=== PATIENT | male | born 1955 | race Caucasian/White ===

== ENCOUNTER 2021-01-26 18:27 | Inpatient (IN) | payer MEDICARE, OTHER, SELFPAY ==
[2021-01-26 18:37] VITALS: BP 115/72; PULSE 76; RESP 16; TEMP 36.2; O2SAT 96; BMI 28.7
[2021-01-26] MEDS: Acetaminophen 325 MG Tablet 650 MG PO (20:23)
[2021-01-26] MEDS: Arthritis Pain Compound 60 CLICK TUBE TOPICAL (21:40)
[2021-01-26] MEDS: Azelastine HCl NASAL.SRY 2 SPRAY NASAL (21:42)
[2021-01-26] MEDS: Atorvastatin Calcium 80 MG Tablet PO (21:44)
[2021-01-26] MEDS: Latanoprost 0.005% 1 Bottle 1 DRP EACH EYE (21:44)
[2021-01-26] MEDS: Pramipexole Di-HCl 0.125 MG Tablet PO (21:44)
[2021-01-26] MEDS: Mupirocin Ointment 22gm Tube 1 APPLIC TOPICAL (21:50)
[2021-01-26 21:54] VITALS: BP 118/75; PULSE 65; RESP 18; TEMP 36.6; O2SAT 96
--- NOTE | 2021-01-27 04:16 | NURSING ---
Reviewed and agree with DRIVERS' CASH CLERK assessment.
[2021-01-27] MEDS: Acetaminophen 325 MG Tablet 650 MG PO ×2 (06:19→14:11)
[2021-01-27 06:36] VITALS: O2SAT 94
[2021-01-27 07:00] LABS: Absolute Neutrophil Count 3.8 X10^3/uL (2.0-7.7); Basophil# 0.04 X10^3/uL; Basophil% 0.6 % (0-1); Eosinophil# 0.22 X10^3/uL; Eosinophils% 3.3 % (0-5); Hematocrit 47.1 % (40-54); Hemoglobin 16.1 g/dL (13.0-16.5); Lymphocyte % 31.3 % (19-41); Mean Corp Hgb Conc 34.2 g/dL (32-36); Mean Corpuscular Volume 93.6 fL (80-94); Mean Platelet Vol. 9.6 fl (6.2-12.0); Monocyte# 0.49 X10^3/uL; Monocyte% 7.3 % (0-10); NRBC Flagged by Analyzer 0 % (0-5); Neutrophil # 3.83 X10^3/uL (2.7-7.7); Neutrophil % 57.2 % (47-70); Platelet Count 214 K/mm3 (150-450); RBC Distribution Width CV 12.8 % (11.6-14.6); RBC Distribution Width SD 44.1 fl (35.1-43.9); Red Blood Count 5.03 M/mm3 (4.6-6.2); White Blood Count 6.7 K/mm3 (4.4-11.0)
[2021-01-27 07:22] LABS: ALB/GLOB Ratio 1.2 RATIO (0.9-2.4); AST(SGOT) 15 U/L (15-37); Alanine Aminotransfer ALT/SGPT 36 U/L (16-61); Alkaline Phosphatase 48 U/L (45-117); Anion Gap 5 (5-15); BUN 10 mg/dL (7-18); BUN/Creat Ratio 12.8 RATIO (10-20); Calcium,Total 9.6 mg/dL (8.5-10.1); Chloride 108 mmol/L (98-107); Creatinine, Serum 0.78 mg/dL (0.70-1.30); EST Glomerular Filtration Rate 106 mL/min (>60); Est Glom Filt Rate - Afr Amer 128 mL/min (>60); Estimated Creatinine Clearance 89.45 ml/min; Globulin 3.2 g/dL (2.2-4.2); Glucose 112 mg/dL (74-106); Magnesium 1.8 mg/dL (1.6-2.6); Phosphorus 3.1 mg/dL (2.5-4.9); Potassium 3.9 mmol/L (3.5-5.1); Protein, Total 7.2 g/dL (6.4-8.2); Sodium Level 138 mmol/L (136-145)
[2021-01-27] MEDS: Aspirin 81 MG TAB.CHEW PO (07:42)
[2021-01-27] MEDS: metFORMIN (XR) 500 MG Tablet PO (07:42)
[2021-01-27] MEDS: Arthritis Pain Compound 60 CLICK TUBE TOPICAL ×2 (07:42→20:58)
[2021-01-27] MEDS: Multivitamins,Therapeutic Tablet 1 TABLET PO (07:42)
[2021-01-27] MEDS: Azelastine HCl NASAL.SRY 2 SPRAY NASAL (07:43)
[2021-01-27] MEDS: Tamsulosin HCl 0.4 MG Capsule PO (07:43)
[2021-01-27] MEDS: Fluticasone 0.05% 1 SPRAY NASAL.SRY 2 SPRAY NASAL (07:43)
[2021-01-27] MEDS: Mupirocin Ointment 22gm Tube 1 APPLIC TOPICAL ×2 (07:43→20:59)
[2021-01-27] MEDS: Clopidogrel Bisulfate 75 MG Tablet PO (07:44)
[2021-01-27] MEDS: Cyanocobalamin 500 MCG Tablet PO (07:44)
[2021-01-27] MEDS: Cholecalciferol (VIT D3) 25 MCG TABLET (1,000 UNITS) 125 MCG PO (07:44)
[2021-01-27] MEDS: Sertraline 50 MG Tablet PO (07:44)
[2021-01-27] MEDS: Pantoprazole Sodium 40 MG Tablet PO (07:44)
[2021-01-27 08:36] VITALS: BP 140/89; PULSE 84; RESP 16; TEMP 36.5; O2SAT 96
--- NOTE | 2021-01-27 10:29 | HP.PCM_ITS ---
HPI - General General Date of Admission: 01/26/21 HPI Narrative PRABHU FAY, is a 65 YO M with a PMH of chronic R hip and back pain, presbycusis ( has BL hearing aids but does not use), tobacco dependence in remission, ED on viagra, GERD, Perez's esophagus, diabetes mellitus type 2, hyperlipidemia, obstructive sleep apnea, BPH and restless leg syndrome who presented to [facility] ED on 01/21/21 with R side weakness, dysarthria and aphasia. A non-contrast CT head was unremarkable and he was transferred to [facility]. The NIHSS was 4. CTA of the head and neck showed no large vessel occlusion but did show mild stenosis of the bilateral vertebral arteries. MRI of the brain showed acute left pontine infarct. He was given TPA at [facility]. A cerebral angiogram was completed on 01/24/2021 and it confirmed mild stenosis at the ostium of both vertebral arteries and carotid bifurcations. No intervention was done. Significant lab included a HGBA1C of 5.7% and an LDL of 116. While at [facility] he was diagnosed with Pseudobulbar affect and he was started on Sertraline. He was seen by PT/OT and ST at [facility] and acute rehab was recommended. He was transferred to the inpt acute rehab unit at [facility] for 3 hours of therapy daily to restore function at or near his level of function/independence prior to the stroke. The discharge packet from [facility] was reviewed. He will be on DAP therapy for a total of 21 days and then the ASA will be discontinued. He will remain on Plavix. All lab done today was personally reviewed. The med list was reviewed. He is on a histamine tri nasal spray and also a steroid nasal spray. He informs me that his last sleep study was about 3 years ago. He has not been wearing his CPAP because he got a letter in the mail that said it could cause lung CA? 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 [facility] Medical History (Updated 01/27/21 @ 14:[address] Suzette Lyles, ) Barretts esophagus BPH (benign prostatic hyperplasia) Chronic back pain Diabetes type 2, controlled (12/12/17) Erectile dysfunction GERD (gastroesophageal reflux disease) Glaucoma Left pontine CVA (01/21/21) Mixed hyperlipidemia Obstructive sleep apnea Osteoarthritis Pseudophakia of both eyes Restless leg syndrome Tobacco dependence in remission Home Medications aspirin 81 mg PO DAILY 01/26/21 [History Last Taken Unknown] atorvastatin [Lipitor] 80 mg PO QHS 01/26/21 [History Last Taken Unknown] azelastine 2 spray INTRANASAL BID 01/26/21 [History Last Taken Unknown] cholecalciferol (vitamin D3) [Vitamin D3] 125 mcg PO DAILY 01/26/21 [History Last Taken Unknown] clopidogrel [Plavix] 75 mg PO DAILY 01/26/21 [History Last Taken Unknown] cyanocobalamin (vitamin B-12) 500 mcg PO DAILY 01/26/21 [History Last Taken Unknown] fluticasone propionate [Flonase] 2 spray INTRANASAL DAILY 01/26/21 [History Last Taken Unknown] latanoprost 1 drp EACH EYE QHS 01/26/21 [History Last Taken Unknown] metformin 500 mg PO DAILY 01/26/21 [History Last Taken Unknown] multivitamin 1 tab PO DAILY 01/26/21 [History Last Taken Unknown] mupirocin [Bactroban] 1 applic TOPICAL BID 01/26/21 [History Last Taken Unknown] pantoprazole 40 mg PO DAILY 01/26/21 [History Last Taken Unknown] pramipexole 0.125 mg PO QHS 01/26/21 [History Last Taken Unknown] sertraline [Zoloft] 50 mg PO DAILY 01/26/21 [History Last Taken Unknown] tamsulosin [Flomax] 0.4 mg PO DAILY 01/26/21 [History Last Taken Unknown] tizanidine [Zanaflex] 2 mg PO Q8H PRN 01/26/21 [History Last Taken Unknown] Allergy/AdvReac Type Severity Reaction Status Date / Time No Known Allergies Allergy Verified 01/26/21 18:40 Family History Father Diabetes CAD (coronary artery disease) Hypertension CVA (cerebral vascular accident) Mother Diabetes Cataract Grandfather Skin cancer Grandmother Cataract Brother Pancreatic cancer Surgical History (Updated 01/27/21 @ 10:[address] Suzette Lyles DO) History of appendectomy History of bilateral cataract extraction History of carpal tunnel surgery History of herniorrhaphy History of repair of rotator cuff Social History (Updated 01/27/21 @ 14:[address] Suzette Lyles DO) Smoking Status: Former smoker Tobacco: How many years used: 20 smoking status stop date: 06/03/16 alcohol intake: current details: Rare alcohol use....tells me he used to drink more. substance use type: marijuana and other details: Uses marijuana daily ROS Constitutional Constitutional: Reports weakness; Denies anorexia, change in weight, chills or fever(s) Eyes Eyes: Denies blurry vision, change in vision, eye pain or loss of vision ENT HEENT: Reports abnormal hearing, nasal congestion, post nasal drip and other Details: he has hearing aids but, he does not wear them. ; Denies dysphagia, headache(s), hearing loss or sore throat Cardiovascular Cardiovascular: Denies chest pain, dyspnea on exertion, edema, lightheadedness, orthopnea, palpitations, paroxysmal nocturnal dyspnea or syncope Respiratory/Chest Respiratory/Chest: Denies cough, dyspnea, shortness of breath at rest, shortness of breath with exertion or wheezing Gastrointestinal Gastrointestinal: Reports constipation; Denies abdominal pain, diarrhea, dyspepsia, hematemesis, hematochezia, nausea or vomiting Genitourinary Genitourinary: Denies dysuria, hematuria, nocturia, urinary frequency, urinary hesitancy, urinary incontinence or urinary urgency Musculoskeletal Musculoskeletal: Reports back pain, extremity pain, joint pain, muscle weakness and other Details: Tells me that he has a trigger finger on the R hand - the middle finger. He had a trigger finger on the left hand injected in the past and it worked well. ; Denies joint swelling or neck pain Integumentary Integumentary: Denies jaundice, pruritus, rash or wounds Neurologic Neurologic: Reports focal weakness; Denies confusion, disequilibrium, dizziness, headache(s), paresthesias, seizures or tremor(s) Psychiatric Psychiatric: Reports other Details: diagnosed with pseudobulbar affect after the CVA ; Denies anxiety, depression, homicidal ideation or suicidal ideation Endocrine Endocrinology: Denies change in body appearance, polydipsia or polyuria Hematologic/Lymphatic Hematologic/Lymphatic: Denies easy bleeding, easy bruising or lymphadenopathy Allergic/Immunologic Allergic/Immunologic: Denies rhinitis, eczemia or asthma Vital Signs Vital Signs Vital Signs: 01/26/21 18:37 01/26/21 21:54 01/27/21 06:36 Temperature 97.2 F L 97.9 F Temperature Source Temporal Oral Pulse Rate 76 65 Respiratory Rate 16 18 Blood Pressure 115/72 118/75 Blood Pressure Mean 86 89 Blood Pressure Source Monitor Monitor Blood Pressure Position Sitting Semi-Fowlers Blood Pressure Location Left Arm Left Arm Pulse Ox 96 96 94 Oxygen Delivery Method Room Air Room Air Room Air 01/27/21 08:36 Temperature 97.7 F L Temperature Source Oral Pulse Rate 84 Respiratory Rate 16 Blood Pressure 140/89 H Blood Pressure Mean 106 Blood Pressure Source Monitor Blood Pressure Position Sitting Blood Pressure Location Right Arm Pulse Ox 96 Oxygen Delivery Method Room Air Weight Weight: 183 lb 6.793 oz Body Mass Index (BMI) 28.7 Indicators for Scoring Admitted with or Primary Diagnosis of CVA/Stroke: No Hx of CVA/Stroke: Yes Modified [place] Score MRS Score at time of Evaluation: 4-Moderate/severe disability NIHSS NIHSS 1a. Level of Consciousness: Alert; keenly responsive 1b. LOC Questions: Answers BOTH questions correctly. 1c. LOC Commands: Performs both tasks correctly. 2. Best Gaze: Normal 3. Visual: No visual loss 4. Facial Palsy: Minor paralysis (flattened nasolabial fold, asymmetry on smiling) 5a. Left Arm: No drift; arm holds 90 (or 45) degrees for full 10 seconds 5b. Right Arm: No drift; arm holds 90 (or 45) degrees for full 10 seconds (It did not drift but, it is obvious that the R arm was slower to lift than the left and he was not able to raise it so high) 6a. Left Leg: No drift; leg holds 30-degree position for full 5 seconds 6b. Right Leg: No drift; leg holds 30-degree position for full 5 seconds (The leg did not drift however he can not raise is as high as the left leg) 7. Limb Ataxia: Absent (he has dysmetria with the RUE on finger/nose testing) 8. Sensory: Normal; no sensory loss 9. Best Language: No aphasia; normal 10. Dysarthria: [id number] dysarthria; 11. Extinction and Inattention: No abnormality Total: 2 Stroke Questions Stroke Team Activated: No a.Reviewed Inclusion/Exclusion criteria: No Was Patient considered for Endovascular Intervention?: No (He is now admitted to a rehab unit....the stroke has been completed) IV TPA Administered: Yes (at the previous hospital) Physical Exam Const alert and oriented x3 Constitutional Narrative: he gets angry/gruff off and on. He responds I know that to questions I ask him like Did you know untreated ALLIE can cause AF and strokes? and did you know that drinking and smoking can cause esophageal CA? General Appearance: cooperative HEENT normocephalic and head/scalp atraumatic Mouth: dry mucous membranes Eyes PERRL and EOMs intact bilaterally Neck supple and no carotid bruits General: trachea midline Resp normal respiratory effort Resp Narrative: He initially had some crackles in the bases but, after a few breathes this resolved. Cardio regular rate, regular rhythm, S1 normal heart sound, S2 normal heart sound, no murmurs, no rub, no gallops and peripheral pulses 2+ throughout GI soft to palpation, non-tender and non-distended GI Narrative: no BS's and no guarding with palpation Extremity no clubbing, cyanosis or edema Skin Rashes: no rashes Neuro CN's II-XII intact bilaterally Neuro Narrative: He has mild weakness on the R side, zaira noticeable when resistance is applied. He is not ataxic with heel to rosa on the R but, it is more difficult to doand he is slower Psych denies homicidal ideation and denies suicidal ideation Psych Narrative: seems emotionally labile Attitude: agitated Results Lab / Micro Data Result Diagrams: 01/27/21 06:54 01/27/21 06:54 Labs: Laboratory Results - last 24 hr 01/27/21 06:54: WBC 6.7, RBC 5.03, Hgb 16.1, Hct 47.1, MCV 93.6, MCH 32.0, MCHC 34.2, RDW Std Deviation 44.1 H, RDW Coeff of Maribel 12.8, Plt Count 214, MPV 9.6, Immature Gran % (Auto) 0.300, Neut % (Auto) 57.2, Lymph % (Auto) 31.3, Lassen % (Auto) 7.3, Eos % (Auto) 3.3, Baso % (Auto) 0.6, Absolute Neuts (auto) 3.8, Absolute Lymphs (auto) 2.10, Nucleated RBC % 0 01/27/21 06:54: Sodium 138, Potassium 3.9, Chloride 108 H, Carbon Dioxide 25.0, Anion Gap 5, BUN 10, Creatinine 0.78, Estim Creat Clear Calc 89.45, Est GFR (MDRD) Af Amer 128, Est GFR (MDRD) Non-Af 106, BUN/Creatinine Ratio 12.8, Glucose 112 H, Calcium 9.6, Phosphorus 3.1, Magnesium 1.8, Total Bilirubin 0.60, AST 15, ALT 36, Alkaline Phosphatase 48, Total Protein 7.2, Albumin 4.0, Globulin 3.2, Albumin/Globulin Ratio 1.2 Assessment & Plan Assessment/Plan (1) Debility: (2) Left pontine CVA: (3) Pseudobulbar affect: (4) Right arm weakness: (5) Dysarthria: (6) Obstructive sleep apnea: (7) Diabetes type 2, controlled: (8) Mixed hyperlipidemia: (9) Tobacco dependence in remission: (10) GERD (gastroesophageal reflux disease): (11) Barretts esophagus: (12) Osteoarthritis: (13) Glaucoma: (14) Allergic rhinitis: (15) BPH (benign prostatic hyperplasia): (16) Chronic back pain: (17) Radicular pain of right lower extremity: PLAN: PLAN PT for gait stability OT for ADL's ST for evaluation Analgesics as needed. Bowel protocol Fall precautions Assess for Anxiety/Depression GI prophylaxis with Protonix DVT prophylaxis with RIGO hose and Lovenox 40 mg subcu daily Follow up with neurology, PCP and his orthopedic doctor to inject the trigger finger on the R hand following DC from IP Rehab AM lab including CMP, CBC, Mag and Phos was reviewed Continue the Sertraline Try Gabapentin for the pain in the R buttock that radiates laterally and involves the knee and the anterior rosa Avoid narcotics.....refer to pain management post DC. I mentioned steroids and he told me they don't work. I mentioned Gabapentin and at first he said he had never had it and then a few minutes later said I think I had it and it did not work. Then he got kind of agitated and wanted to know why no one gives pain medications any more. I reviewed the [place] and he had a RX for #[address] Clitnon Irwin in [place] on 07/26/20. Charges/Coding Visit Charges Inpatient E&M: 37955 Init Hosp L3
[2021-01-27 13:17] VITALS: BMI 28.7
--- NOTE | 2021-01-27 13:57 | REHABEVAL_ITS ---
Admission Information Primary Diagnosis:: Debility due to left pontine ischemic CVA with dysarthria, R side weakness and incoordination and pseudobulbar affect. Status Changes from Prescreening?: No changes Identified Actual Problem List:: Falls, Pain, ALteration in Cmfrt, Cognitve Impr/Memory Loss, Bowel, Constipation, Mobility Impaired, Self Care Deficit, Know.Dfct/Disease Process, Know.Dfct of Medicaitons and Alteration-Leisure Activ. Potential Problem List:: DVT, Bleeding, Infection, UTI, Aspiration, Falls, Skin Integrity and Depression Risk of Complications DVT: LMWH and RIGO Hose Bleeding: Monitor Lab Values, Nursing to Teach Precautions for anti-coagulation therapy., Wound, if applicable, to be assessed every shift. and Stroke patients assessed for lethargy or change in status. Infection: Clinical Staff to Monitor for S/S of infection: and S/S of infection include fever, redness, warmth, etc. Urinary Tract Infection: Monitor for frequency, burning, discomfort, or incontinence. and Nursing will obtain urine sample for urinalysis and C&S when ordered. Aspiration: Clinical staff will monitor for coughing, drooling, congestion., Speech will evaluate swallowing and dsyphasia. and Nursing will monitor patient swallowing during meals. Falls: Patient will be evaluated for Fall Precautions and Patient will be placed on Fall Precautions as indicated per protocol. Skin Breakdown: Nursing will assess skin daily using assessment tool. and Nursing will place on Skin Breakdown Precautions as indicated. Pain: Clinical staff will assess patient's pain level per protocol., Medications will be given, if needed, and the pain level reassessed. and Other methods: Massage, distraction, decrease stimulus, etc. used PRN. Plan of Care Patient requires physician specializing in physical medicine and rehab oversight to provide close medical supervision of rehab issues including: Pain Management, Sleep Problems, Bowel and Bladder, Medical and co-morbidity Management, DVT prophylaxis, Rehabilitation Leadership and Coordination of treatment team Patient needs Physical Therapy: For a minimum of 1 hour and At least 5 out of 7 days Patient needs Physical Therapy to improve:: Mobility, Strengthening, Transfers, Stretching, ROM, Endurance, Stairs, Gait and Balance Patient needs Occupational Therapy: For a minimum of 1 hour and At least 5 out of 7 days Patient needs Occupational Therapy to improve ADL's incl.: Eating, Grooming, Bathing, Dressing, Toileting, Toilet transfers, Community Reintegration, Higher functioning activities, Household tasks, Adaptive Equipment, Splinting and Other activities as determined Patient requires speech therapy: For a minimum of 1 hour and At least 5 out of 7 days Patient requires speech therapy for: Swallowing, Cognition, Language Skills and Compensatory Strategies Patient requires 24/ Rehabilitation Nursing for: Pain Issues, Identifying and preventing risk factors, Monitoring and reporting current medical conditions, Assisting with ambulation, transfer, and all ADL's, Teaching patients about disease process and medications, Family teaching, Providing safe environment, Bowel and Bladder Issues, Skin integrity and Medication Management Patient needs Quantitative Strategy Analyst/ Case Management for: Discharge Planning, Arranging Home Equipment or Services and Family Interventions Patient needs Dietary and Nutrition Services for: Adequate Nutrition, Nutritional Supplements and Nutritional Education Goals Patient will remain: free from falls and or injury at time of discharge. Patient will perform bed mobility at: MOD I level of assist. Patient will complete transfers from bed to chair at: MOD I level of assist. Patient will ambulate: with LRD and - (300 ft at MELISA) Patient will complete upper body dressing at: MOD I level of assist. Patient will complete lower body dressing at: MOD I level of assist. Patient will complete toileting at: MOD I level of assist. Patient will perform bathing at: MOD I level of assist. Patient will complete grooming at: MOD I level of assist. Patient will complete home management skills at: MOD I level of assist. Patient will achieve: - (1 curb step and 3 regular4 steps wtith 2 rails at SBA) Patient will have pain level of: of 3 or less Patient's skin will: remain intact Patient will receive: adequate nutrition. Discharge Planning Pt Prognosis for Sig. Practical Improv. w/in Reasonable Time: Good Estimated Length of stay (days): 21 Anticipated D/C Destination: Home with Outpt Therapy Was Preadmission Assessment Accurate?: Yes
[2021-01-27] MEDS: Gabapentin 100 MG Capsule 200 MG PO ×2 (15:15→17:13)
[2021-01-27] MEDS: Ipratropium Bromide 0.06% NASAL SPRAY 2 SPRAY NASAL ×2 (15:44→20:59)
[2021-01-27] MEDS: Folic Acid 1 MG Tablet PO (17:13)
[2021-01-27 19:49] VITALS: BP 129/64; PULSE 75; RESP 18; TEMP 36.7; O2SAT 96
[2021-01-27] MEDS: Atorvastatin Calcium 80 MG Tablet PO (20:59)
[2021-01-27 21:00] VITALS: BMI 28.7
[2021-01-27] MEDS: Acetaminophen 500 MG Tablet 1000 MG PO (21:00)
[2021-01-27] MEDS: Pramipexole Di-HCl 0.125 MG Tablet PO (21:00)
[2021-01-27] MEDS: Gabapentin 400 MG Capsule PO (21:00)
[2021-01-27] MEDS: Latanoprost 0.005% 1 Bottle 1 DRP EACH EYE (21:01)
[2021-01-27 23:55] VITALS: BP 136/84; PULSE 70; RESP 18; TEMP 36.4; O2SAT 96
[2021-01-27] MEDS: tiZANidine HCl 2 MG Tablet PO (23:58)
[2021-01-28] MEDS: Pantoprazole Sodium 40 MG Tablet PO (06:58)
[2021-01-28] MEDS: Acetaminophen 500 MG Tablet 1000 MG PO ×3 (06:58→20:44)
[2021-01-28 07:44] VITALS: BP 136/70; PULSE 56; RESP 16; TEMP 36.5; O2SAT 98
[2021-01-28] MEDS: Folic Acid 1 MG Tablet PO ×2 (07:44→18:22)
[2021-01-28] MEDS: Multivitamins,Therapeutic Tablet 1 TABLET PO (07:44)
[2021-01-28] MEDS: Aspirin 81 MG TAB.CHEW PO (07:44)
[2021-01-28] MEDS: metFORMIN (XR) 500 MG Tablet PO (07:44)
[2021-01-28] MEDS: Ipratropium Bromide 0.06% NASAL SPRAY 2 SPRAY NASAL ×2 (07:45→20:44)
[2021-01-28] MEDS: Enoxaparin 40 MG/0.4 ML Syringe SC (07:45)
[2021-01-28] MEDS: Arthritis Pain Compound 60 CLICK TUBE TOPICAL ×2 (07:45→20:45)
[2021-01-28] MEDS: Gabapentin 100 MG Capsule 200 MG PO (07:45)
[2021-01-28] MEDS: Tamsulosin HCl 0.4 MG Capsule PO (07:45)
[2021-01-28] MEDS: Clopidogrel Bisulfate 75 MG Tablet PO (07:46)
[2021-01-28] MEDS: Sertraline 50 MG Tablet PO (07:46)
[2021-01-28] MEDS: Cyanocobalamin 500 MCG Tablet PO (07:46)
[2021-01-28] MEDS: Cholecalciferol (VIT D3) 25 MCG TABLET (1,000 UNITS) 125 MCG PO (07:46)
[2021-01-28 09:03] VITALS: O2SAT 98
--- NOTE | 2021-01-28 10:57 | PCM.PN.BLA ---
Progress Note Afebrile Blood pressure is well controlled Maintaining appropriate saturation on room air. Good oral intake He told me yesterday he rarely drinks alcohol. He told the SW this morning that he drinks half a bottle a day but, not every day. He told her he has cut back over the past few months. Also uses marijuana daily.....mostly gummies but he occasionally smokes. Yesterday his ex- brought him a steak on a stick and a sausage sandwich for dinner.....nursing reminded him that he is here for stroke rehabilitation and he has high cholesterol. He had RLS last night but, he got 2 mg of Tizanidine and then he went to sleep for the night. He is requesting Percocet for pain in the back and the R leg. the radicular pain down the R leg is new recently. He was scheduled to start PT soon but, obviously can not now. Tells me that he was on Vicodin for 10 years prior to retiring for chronic back pain. Has not had an MRI. He thinks I do not care that he is in pain. I reassured him that this is not the case but, I will not prescribe a narcotic at this time. He then admitted that the Gabapentin has helped with the pain and he did things in PT today that he was unable to do yesterday due to pain. He states he feels drunk though and attributes this to the Gabapentin. I told him this is usually only transient. He is also c/o RLS but, I told him this is associated with untreated sleep apnea and that we would be doing an overnight trending pulse ox tonight to see if he desaturates at night. He was crying while on the NuStep today. We discussed with him and his ex- about pseudobulbar affect and why he is having trouble controlling his emotions, more than usual. He has had epidurals in the past and they worked for about 5 years and then stopped working. Physical Exam Const alert Constitutional Narrative: agitated initially but then he calmed down and discussed what we are going to do about his pain in a calm manner. he responds well when you explain the logic behind the changes we are making. He told the PT today that he guesses he will have to stop drinking. Chest Chest: symmetrical chest wall rise Resp normal respiratory effort Resp Narrative: not tachypneic and no conversational dyspnea. Cardio regular rate, regular rhythm and no gallops GI normal to inspection, nondistended, normoactive bowel sounds Extremity Extremity Narrative: edema of the right hand. No calf pain. Psych Psych Narrative: emotionally labile and can fly off the handle easily but, he is redirectable Assessment & Plan Assessment/Plan (1) Debility: (2) Left pontine CVA: (3) Pseudobulbar affect: (4) Chronic back pain: (5) Radicular pain of right lower extremity: (6) Obstructive sleep apnea: PLAN: 1. Continue the Gabapentin. 2. overnight trending pulse ox tonight - if he desaturates supplementing the oxygen when sleeping will likely help with RLS. 3. add Marinol 2.5 mg BID - he tells me that the marijuana helps with the pain and also it helps him sleep. 4. Xrays of the LS spine including bending views to look for spondylolisthesis 5. Continue the Mirapex for now. Visit Charges Inpatient E&M: 10918 Subs Hosp L2
[2021-01-28 17:00] VITALS: BMI 28.7
--- NOTE | 2021-01-28 17:50 | RAD_ITS ---
STUDY: X-RAY - LUMBOSACRAL SPINE REASON FOR EXAM: Male, 65 years old. back pain with radicular pain exteding into the R TECHNIQUE: 6 view(s) of the lumbosacral spine were obtained. COMPARISON: None FINDINGS: Lumbar spine is intact and aligned with expected mild age-related degeneration of lower lumbar discs, endplates and facets. The spine is stable in flexion and extension with minimal range of motion present. SI joints are normal. Paraspinous soft tissue shadows are unremarkable. RAD/L/S Spine Comp/w Bending Views IMPRESSION: Age normal lumbar spine. Electronically Signed: Kristi Mar MD at 21:11 EDT Tel , Service support ,
[2021-01-28 18:57] VITALS: BP 129/74; PULSE 65; RESP 18; TEMP 36.6; O2SAT 100
[2021-01-28] MEDS: Latanoprost 0.005% 1 Bottle 1 DRP EACH EYE (20:43)
[2021-01-28] MEDS: Atorvastatin Calcium 80 MG Tablet PO (20:44)
[2021-01-28] MEDS: Pramipexole Di-HCl 0.125 MG Tablet PO (20:44)
[2021-01-28] MEDS: Gabapentin 300 MG Capsule PO (20:45)
[2021-01-28 21:45] VITALS: PULSE 65; O2SAT 98
[2021-01-28] MEDS: tiZANidine HCl 2 MG Tablet PO (23:30)
[2021-01-29] MEDS: Pantoprazole Sodium 40 MG Tablet PO (06:37)
[2021-01-29] MEDS: Dronabinol 2.5 MG Capsule PO ×2 (06:37→16:22)
[2021-01-29] MEDS: Acetaminophen 500 MG Tablet 1000 MG PO ×3 (06:37→21:14)
[2021-01-29 07:06] VITALS: BP 140/63; PULSE 76; RESP 16; TEMP 36.5; O2SAT 97
[2021-01-29] MEDS: Folic Acid 1 MG Tablet PO ×2 (09:06→16:22)
[2021-01-29] MEDS: Multivitamins,Therapeutic Tablet 1 TABLET PO (09:06)
[2021-01-29] MEDS: Cholecalciferol (VIT D3) 25 MCG TABLET (1,000 UNITS) 125 MCG PO (09:06)
[2021-01-29] MEDS: metFORMIN (XR) 500 MG Tablet PO (09:06)
[2021-01-29] MEDS: Cyanocobalamin 500 MCG Tablet PO (09:07)
[2021-01-29] MEDS: Gabapentin 100 MG Capsule 200 MG PO ×2 (09:07→13:44)
[2021-01-29] MEDS: Aspirin 81 MG TAB.CHEW PO (09:07)
[2021-01-29] MEDS: Clopidogrel Bisulfate 75 MG Tablet PO (09:07)
[2021-01-29] MEDS: Tamsulosin HCl 0.4 MG Capsule PO (09:08)
[2021-01-29] MEDS: Enoxaparin 40 MG/0.4 ML Syringe SC (09:08)
[2021-01-29] MEDS: Ipratropium Bromide 0.06% NASAL SPRAY 2 SPRAY NASAL ×2 (09:09→21:12)
[2021-01-29] MEDS: Sertraline 100 MG Tablet PO (09:11)
[2021-01-29] MEDS: Arthritis Pain Compound 60 CLICK TUBE TOPICAL ×2 (09:17→21:12)
[2021-01-29 14:54] VITALS: BMI 28.7
[2021-01-29] MEDS: Gabapentin 300 MG Capsule PO (21:12)
[2021-01-29] MEDS: Atorvastatin Calcium 80 MG Tablet PO (21:13)
[2021-01-29] MEDS: Pramipexole Di-HCl 0.125 MG Tablet PO (21:14)
[2021-01-29] MEDS: Latanoprost 0.005% 1 Bottle 1 DRP EACH EYE (21:14)
[2021-01-29 21:24] VITALS: BMI 28.7
[2021-01-29 22:00] VITALS: BP 153/91; PULSE 77; RESP 16; RESP 18; TEMP 36.7; O2SAT 96
[2021-01-29] MEDS: Mag Hydrox/Al Hydrox/Simeth 30 ML UDC PO (22:27)
[2021-01-29] MEDS: tiZANidine HCl 2 MG Tablet PO (22:27)
[2021-01-30] MEDS: Acetaminophen 500 MG Tablet 1000 MG PO ×3 (06:06→21:00)
[2021-01-30] MEDS: Dronabinol 2.5 MG Capsule PO ×2 (06:06→16:16)
[2021-01-30] MEDS: Pantoprazole Sodium 40 MG Tablet PO (06:06)
[2021-01-30 07:48] VITALS: BP 135/93; PULSE 75; RESP 16; TEMP 36.4; O2SAT 99
[2021-01-30] MEDS: Folic Acid 1 MG Tablet PO ×2 (09:09→16:16)
[2021-01-30] MEDS: Multivitamins,Therapeutic Tablet 1 TABLET PO (09:09)
[2021-01-30] MEDS: Aspirin 81 MG TAB.CHEW PO (09:09)
[2021-01-30] MEDS: Gabapentin 100 MG Capsule 200 MG PO ×2 (09:09→14:15)
[2021-01-30] MEDS: metFORMIN (XR) 500 MG Tablet PO (09:09)
[2021-01-30] MEDS: Clopidogrel Bisulfate 75 MG Tablet PO (09:10)
[2021-01-30] MEDS: Tamsulosin HCl 0.4 MG Capsule PO (09:10)
[2021-01-30] MEDS: Arthritis Pain Compound 60 CLICK TUBE TOPICAL ×2 (09:10→20:28)
[2021-01-30] MEDS: Enoxaparin 40 MG/0.4 ML Syringe SC (09:10)
[2021-01-30] MEDS: Cholecalciferol (VIT D3) 25 MCG TABLET (1,000 UNITS) 125 MCG PO (09:11)
[2021-01-30] MEDS: Ipratropium Bromide 0.06% NASAL SPRAY 2 SPRAY NASAL ×2 (09:11→20:32)
[2021-01-30] MEDS: Cyanocobalamin 500 MCG Tablet PO (09:11)
[2021-01-30] MEDS: Sertraline 100 MG Tablet PO (09:13)
[2021-01-30] MEDS: tiZANidine HCl 2 MG Tablet PO ×2 (11:03→22:52)
[2021-01-30 14:51] VITALS: BMI 28.7
[2021-01-30 19:15] VITALS: BP 160/81; PULSE 77; RESP 16; TEMP 36.6; O2SAT 97
[2021-01-30] MEDS: Gabapentin 300 MG Capsule PO (20:30)
[2021-01-30] MEDS: Atorvastatin Calcium 80 MG Tablet PO (20:33)
[2021-01-30] MEDS: Pramipexole Di-HCl 0.125 MG Tablet PO (20:34)
[2021-01-30 20:39] VITALS: BMI 28.7
[2021-01-30] MEDS: Mag Hydrox/Al Hydrox/Simeth 30 ML UDC PO (20:55)
[2021-01-30] MEDS: Latanoprost 0.005% 1 Bottle 1 DRP EACH EYE (21:09)
[2021-01-30 21:45] VITALS: BP 128/76; PULSE 78
[2021-01-30 22:00] VITALS: PULSE 78; RESP 16; O2SAT 95
[2021-01-31] MEDS: Dronabinol 2.5 MG Capsule PO ×2 (06:02→16:35)
[2021-01-31] MEDS: Pantoprazole Sodium 40 MG Tablet PO ×2 (06:02→20:03)
[2021-01-31] MEDS: Acetaminophen 500 MG Tablet 1000 MG PO ×3 (06:02→20:02)
[2021-01-31 08:13] VITALS: BP 115/77; PULSE 71; RESP 16; TEMP 36.6; O2SAT 98
[2021-01-31] MEDS: Aspirin 81 MG TAB.CHEW PO (09:15)
[2021-01-31] MEDS: Folic Acid 1 MG Tablet PO ×2 (09:15→16:35)
[2021-01-31] MEDS: metFORMIN (XR) 500 MG Tablet PO (09:15)
[2021-01-31] MEDS: Gabapentin 100 MG Capsule 200 MG PO ×2 (09:15→13:55)
[2021-01-31] MEDS: Multivitamins,Therapeutic Tablet 1 TABLET PO (09:15)
[2021-01-31] MEDS: Ipratropium Bromide 0.06% NASAL SPRAY 2 SPRAY NASAL ×2 (09:16→19:59)
[2021-01-31] MEDS: Tamsulosin HCl 0.4 MG Capsule PO (09:16)
[2021-01-31] MEDS: Enoxaparin 40 MG/0.4 ML Syringe SC (09:16)
[2021-01-31] MEDS: Arthritis Pain Compound 60 CLICK TUBE TOPICAL ×2 (09:16→19:59)
[2021-01-31] MEDS: Cholecalciferol (VIT D3) 25 MCG TABLET (1,000 UNITS) 125 MCG PO (09:17)
[2021-01-31] MEDS: Cyanocobalamin 500 MCG Tablet PO (09:17)
[2021-01-31] MEDS: Clopidogrel Bisulfate 75 MG Tablet PO (09:17)
[2021-01-31] MEDS: Sertraline 100 MG Tablet PO (09:20)
--- NOTE | 2021-01-31 12:08 | PCM.PN.BLA ---
Progress Note Hitesh was seen on TEAM rounds today. His ex- was present in the room. Afebrile VSS Maintaining appropriate oxygen saturation on RA Oral intake is good Last bowel movement was 01/30/2021. Discussed with nursing - no problems that need addressed Reviewed the PT/OT/ST notes - He is making very good progress and is ambulating with a quad cane now. Medication list reviewed. Did not c/o RLS today. He is less fuzzy with the Gabapentin and he tells me his pain is adequately controlled. He is still c/o some radicular pain in the RLE although it is much better. He is also still having some RLS sx at night and he takes Tizanidine and then he is able to go to sleep. He is also still c/o the trigger finger on the R hand and asks if it can be injected. Denies SOB, cough, CP, palpitations and lightheadedness. He is having heartburn and states at home he also has breakthrough with Protonix only once a day and he takes OTC Prilosec when this happens. the LS XRAYS were stable with flexion and extension. There is some degenerative disc disease and spondylosis of the endplates and facets. Physical Exam Const alert and oriented x3 General Appearance: cooperative Resp normal respiratory effort and clear to auscultation bilaterally Cardio regular rate, regular rhythm and no gallops Cardio Narrative: rare premature beat GI normal to inspection, nondistended, normoactive bowel sounds GI Narrative: no guarding with palpation Extremity no calf tenderness and no pedal edema Skin General Skin Exam: no breakdown Rashes: no rashes Assessment & Plan Assessment/Plan (1) Debility: (2) Left pontine CVA: (3) Pseudobulbar affect: (4) Radicular pain of right lower extremity: (5) Chronic back pain: (6) Barretts esophagus: (7) GERD (gastroesophageal reflux disease): (8) BPH (benign prostatic hyperplasia): PLAN: 1. Increase the Protonix to BID 2. Add Elavil 25 mg at HS for sleep and for radicular pain and RLS. He has RLS at night despite the Mirapex it is likely causing augmentation and will consider discontinuing......will need to taper off if we decide to discontinue 3. continue therapy 4. Watch for urine retention with the use of Elavil for suspected radicular pain Visit Charges Inpatient E&M: 91295 Subs Hosp L2
--- NOTE | 2021-01-31 15:56 | CASEMGMT ---
Social Work Team meeting held today with pt and ex present. Pt is receiving PT/OT/ST and making functional gains with therapy. Pt is concerned most with swallowing and need for thickened liquids. Pt updated that Medicare has allowed for 23 days with Last covered day 02/17 and d/c 02/18. Pt plans to discharge home alone but exwife states she will be able to assist as needed. Will continue with treatment plan at this time. No discharge date set. ERNESTO Junior
[2021-01-31] MEDS: Mag Hydrox/Al Hydrox/Simeth 30 ML UDC PO (16:40)
[2021-01-31 16:42] VITALS: BMI 28.7
[2021-01-31] MEDS: Gabapentin 300 MG Capsule PO (19:59)
[2021-01-31] MEDS: MELATONIN 3 MG TABLET PO (20:00)
[2021-01-31] MEDS: Atorvastatin Calcium 80 MG Tablet PO (20:00)
[2021-01-31] MEDS: Pramipexole Di-HCl 0.125 MG Tablet PO (20:01)
[2021-01-31] MEDS: Amitriptyline 25 MG Tablet PO (20:01)
[2021-01-31] MEDS: Senna/Docusate Sodium 1 Tablet 2 TABLET PO (20:02)
[2021-01-31] MEDS: Latanoprost 0.005% 1 Bottle 1 DRP EACH EYE (20:03)
[2021-01-31] MEDS: tiZANidine HCl 2 MG Tablet PO (20:11)
[2021-01-31 20:20] VITALS: BP 127/76; PULSE 85; RESP 17; TEMP 36.7; O2SAT 95
[2021-01-31 23:18] VITALS: PULSE 85; RESP 17; O2SAT 95
[2021-02-01] MEDS: Dronabinol 2.5 MG Capsule PO ×2 (05:40→16:30)
[2021-02-01] MEDS: Acetaminophen 500 MG Tablet 1000 MG PO ×3 (05:40→21:01)
[2021-02-01 07:19] VITALS: BP 112/65; PULSE 60; RESP 14; TEMP 36; O2SAT 96
[2021-02-01] MEDS: Enoxaparin 40 MG/0.4 ML Syringe SC (07:33)
[2021-02-01] MEDS: Ipratropium Bromide 0.06% NASAL SPRAY 2 SPRAY NASAL ×2 (07:34→21:02)
[2021-02-01] MEDS: Arthritis Pain Compound 60 CLICK TUBE TOPICAL ×2 (07:34→21:03)
[2021-02-01] MEDS: metFORMIN (XR) 500 MG Tablet PO (07:36)
[2021-02-01] MEDS: Pantoprazole Sodium 40 MG Tablet PO ×2 (07:36→16:31)
[2021-02-01] MEDS: Tamsulosin HCl 0.4 MG Capsule PO (07:36)
[2021-02-01] MEDS: Cyanocobalamin 500 MCG Tablet PO (07:36)
[2021-02-01] MEDS: Aspirin 81 MG TAB.CHEW PO (07:36)
[2021-02-01] MEDS: Cholecalciferol (VIT D3) 25 MCG TABLET (1,000 UNITS) 125 MCG PO (07:36)
[2021-02-01] MEDS: Sertraline 100 MG Tablet PO (07:36)
[2021-02-01] MEDS: Multivitamins,Therapeutic Tablet 1 TABLET PO (07:36)
[2021-02-01] MEDS: Clopidogrel Bisulfate 75 MG Tablet PO (07:36)
[2021-02-01] MEDS: Folic Acid 1 MG Tablet PO ×2 (07:36→16:31)
[2021-02-01] MEDS: Gabapentin 100 MG Capsule 200 MG PO ×2 (07:37→14:26)
[2021-02-01] MEDS: Senna/Docusate Sodium 1 Tablet 2 TABLET PO ×2 (07:37→21:02)
[2021-02-01 11:26] LABS: Absolute Lymphocyte Count 1.57 X10^3/uL (0.83-4.51); Absolute Neutrophil Count 6.5 X10^3/uL (2.0-7.7); Basophil# 0.04 X10^3/uL; Basophil% 0.4 % (0-1); Eosinophils% 1.1 % (0-5); Hematocrit 45.9 % (40-54); Hemoglobin 15.5 g/dL (13.0-16.5); Lymphocyte # 1.57 X10^3/ul (0.83-4.51); Lymphocyte % 17.6 % (19-41); Mean Corp Hgb Conc 33.8 g/dL (32-36); Mean Corpuscular Hgb 31.4 pg (27.0-32.0); Mean Corpuscular Volume 93.1 fL (80-94); Mean Platelet Vol. 9.4 fl (6.2-12.0); Monocyte# 0.73 X10^3/uL; Monocyte% 8.2 % (0-10); NRBC Flagged by Analyzer 0 % (0-5); Neutrophil # 6.46 X10^3/uL (2.7-7.7); Neutrophil % 72.4 % (47-70); Platelet Count 193 K/mm3 (150-450); RBC Distribution Width CV 12.6 % (11.6-14.6); RBC Distribution Width SD 43.1 fl (35.1-43.9); Red Blood Count 4.93 M/mm3 (4.6-6.2); White Blood Count 8.9 K/mm3 (4.4-11.0)
[2021-02-01 11:50] LABS: Uric Acid 4.9 mg/dL (3.5-7.2)
--- NOTE | 2021-02-01 14:19 | TELEMED_ITS ---
[facility] has confirmed receipt of a request for visit. This document confirms receipt of the order initiating the consult. To find the results of the consultation, please view the patient's reports for the scanned Telemed Consult.
[2021-02-01] MEDS: predniSONE 20 MG Tablet 40 MG PO (14:26)
[2021-02-01 14:58] VITALS: BMI 28.7
--- NOTE | 2021-02-01 17:49 | SP.MBSS_ITS ---
Modified Barium Swallow - Patient Information Study Date: 02/01/21 Study Time: 14:45 Direct Billable Minutes: 150 Total Minutes procedure & reportin Diagnosis: dysphagia/CVA Referring Physician: Suzette Lyles Reason for Referral: Objective assessment of swallow function under fluoroscopy recommended d/t suspected pharyngeal dysphagia, to further elucidate diet texture/liquid consistency/compensatory strategy recommendations and improve specificity of dysphagia interventions selected. Medical History: This patient is a 65 YO M with a PMH of chronic R hip and back pain, presbycusis (has BL hearing aids but does not use), tobacco dependence in remission, ED on viagra, GERD, Perez's esophagus, diabetes mellitus type 2, hyperlipidemia, obstructive sleep apnea, BPH and restless leg syndrome who presented to [facility] ED on 01/21/21 with R side weakness, dysarthria and aphasia. A non-contrast CT head was unremarkable and he was transferred to [facility]. The NIHSS was 4. CTA of the head and neck showed no large vessel occlusion but did show mild stenosis of the bilateral vertebral arteries. MRI of the brain showed acute left pontine infarct. He was given TPA at [facility]. A cerebral angiogram was completed on 01/24/2021 and it confirmed mild stenosis at the ostium of both vertebral arteries and carotid bifurcations. No intervention was done. While at [facility] he was diagnosed with Pseudobulbar affect and he was started on Sertraline. He was transferred to the [facility] Inpatient Rehab Unit for 3 hours of physical, occupational, and speech therapy daily to restore function at or near his level of function/independence prior to the stroke. Current Diet Ordered: regular textures/mildly thick liquids Dentition: Natural Teeth Respiratory Status: Oxygenating on Room Air - Penetration-Aspiration Scale Penetration-Aspiration Scale: OBJECTIVE ASSESSMENT OF SWALLOW FUNCTION (QUANTITATIVE ? PER TRIAL): PENETRATION / ASPIRATION SCALE (WINTER): 1 = does not enter airway 2 = enters airway/above vocal folds/ejected 3 = enters airway/above vocal folds/not ejected 4 = enters airway/contacts vocal folds/ejected 5 = enters airway/contacts vocal folds/not ejected 6 = enters airway/below vocal folds/ejected 7 = enters airway/below vocal folds/not ejected despite effort 8 = enters airway/below vocal folds/no effort VIDEOFLOROSCOPIC SCALE SCORE (WINTER): Grade I = aspiration of material that has penetrated into the laryngeal vestibule, intact cough reflex Grade II = aspiration < 10 % of the bolus, intact cough reflex Grade III = aspiration of < 10 % of the bolus, reduced cough reflex or aspiration of > 10 % of the bolus, intact cough reflex Grade IV = aspiration of > 10 % of the bolus, reduced cough reflex - Penetration-Aspiration Scale Score Thin Liquid via teaspoon Result: 1= does not enter airway Thin Liquid via teaspoon Trial 2 Result: 1= does not enter airway Thin Liquid via small single sip from cup Result: 2= enter airway/above vocal folds/ejected Thin Liquid via sequential sips from cup Result: 8= enters airway/below vocal folds/no effort [place] Thick Liquid via large single sip from cup Result: 3= enters airways/above vocal folds/not ejected Comment: residue which was not ejected eventually extended downward, contacting the vocal folds w/ post-prandial aspiration of residue from this trial visible during subsequent trials; 8 = enters airway/below vocal folds/no effort [place] Thick Liquid via small single sip from cup Result: 1= does not enter airway [place] Thick Liquid via small single sip from cup Result: 1= does not enter airway Comment: bolus did not penetrate into the laryngeal vestibule, although significant pharyngeal residue remained post deglutition w/ penetration/silent aspiration evident w/ subsequent swallow used to clear residue; 8 = enters airway/below vocal folds/no effort Pudding Result: 1= does not enter airway Pudding - screen for esophageal clearance Result: 1= does not enter airway Comment: *IMPAIRED* Cookie Result: 1= does not enter airway Thin Liquid via small single sip from cup Effortful swallow Result: 1= does not enter airway Thin Liquid via single sip from straw Effortful swallow Result: 7= enters airways/below vocal folds/not ejected despite effort Comment: poor bolus control w/ posterior loss of partial bolus, penetration into the laryngeal vestibule, contacting the vocal folds prior to swallow onset w/ aspiration during the swallow; extremely weak and delayed throat clearing response to aspiration, not effective to expel penetration/aspiration Thin Liquid via small single sip from cup Effortful swallow Trial 2 Result: 2= enter airway/above vocal folds/ejected - Oral Phase Labial Seal: No Labial Escape Tongue Control During Bolus Hold: Posterior escape of less than half of bolus Bolus Preparation/Mastication: Slow prolonged chewing/mashing with complete recollection Bolus Transport/Lingual Motion: Repetitive/disorganized tongue motion Oral Residue: Residue collection on oral structures - Pharyngeal Phase Initiation of Pharyngeal Swallow: Bolus head in pyriforms Soft Palate Elevation: No bolus between soft palate and pharyngeal wall Laryngeal Elevation: Partial superior movement thyroid cart/partial apprx aryt- epig petiole Anterior Hyoid Excursion: Partial anterior movement Epiglottic Movement: Partial inversion - did not invert beyond 90 degrees Laryngeal Vestibule Closure at Height of Swallow: Incomplete; narrow column of air/contrast in laryngeal vestibule Pharyngeal Stripping Wave: Present - diminished - superior 1/2 intact, lower 1/2 absent Pharyngoesophageal Segment Opening: Parital distension and partial duration; parital obstruction of flow Tongue Base Retraction: Narrow column of contrast between tongue base & post. pharyngeal wall Pharyngeal Residue: Collection of residue within or on pharyngeal structures - majority w/in valleculae, residue coating the lower 1/2 of the posterior pharyngeal wall/aryepiglottic folds/pyriform sinuses - Esophageal Phase Esophageal Clearance: Esophageal retention w/ retrograde flow below pharyngoesophageal seg. - known history of Perez's esophagus; poor peristalsis/clearance - Treatment Strategies Effects of treatment strategies attemped:: Reduction in liquid bolus volume = effective Elimination of straws = effective Effortful swallow = effective Double swallow = effective Liquid wash = effective - Diagnosis/Impression Diagnosis: moderate oropharyngeal dysphagia Impression: Oral phase was primarily marked by swallow onset delay (approximately 2-3 seconds in length) resulting in premature loss of bolus to the pyriform sinuses. Pt also presenting w/poor oral clearance secondary to reduced intraoral strength and repetitive, disorganized lingual movement. Pt benefited from cued double effortful swallow to reduce oral residue following pudding and cookie trials. Pharyngeal phase was primarily marked by delayed pharyngeal swallow onset timing resulting in suboptimal bolus location upon swallow onset contributing to prandial aspiration. Pharyngeal phase additional marked by reduced closure of the airway during deglutition attributed to reduced hyolaryngeal elevation and anterior hyoid excursion resulting in incomplete epiglottic inversion and insufficient arytenoid to epiglottic petiole contact with poor laryngeal vestibule closure which contributed to prandial penetration and aspiration. Pt presents w/poor pharyngeal motility attributed to reduced tongue base retraction, reduced peristalsis of the lower half of pharyngeal stripping wave, and reduced pharyngoesophageal segment opening resulting in pharyngeal residue within the vallecula and pyriform sinus post-deglutition. Penetration of pharyngeal residue intermittently extended to vocal folds which was silently aspirated on following PO trials. A cued cough w/re-swallow was not effective to expel penetrated contrast from the laryngeal vestibule or tracheal aspirate. Use of small volume sips w/ an effortful swallow was effective to improve laryngeal vestibule closure. Double effortful swallows were also effective to reduce pharyngeal residue. Esophageal phase was primarily marked by significant retention and retrograde flow of bolus below the PES - known history of Perez?s Esophagus. - Recommendations Diet: Regular Textures, Thin Liquids Compensatory Strategies: Small Bites, Small Sips, No Straws, Multiple Swallows - 2 effortful swallows for each bite/sip, Alternate bites/solids and sips/liquids, Sitting upright, Remain sitting upright for 30 minutes after PO intake - GERD precautions Supervision: 1:1 Close Supervision - assist w/ verbal cues to ensure use of c ompensatory strategies until patient demonstrates consistent and independent use Recommend Repeat Modified Barium Swallow: TBD - pending tolerance of recommended diet/pulmonary status changes Need for Skilled Speech Therapy Services: Yes Comment: This patient requires intensive skilled speech-language intervention targeting: * compensatory strategy education, instruction for use and monitor consistency of adherence * oral strengthening exercises to improve oral bolus control and transportation/clearance * pharyngeal strengthening exercises targeting tongue base strength, swallow onset timing, anterior hyoid excursion, pharyngeal stripping wave/pharyngeal motility, laryngeal vestibule closure, epiglottic inversion, PES distention/duration Education Completed: 1. Described result of evaluation., 2. Pt understands evaluation & agrees with goals and treatment plan. Comment: Images were reviewed w/ the patient following MBS conclusion. Extended time spend providing education re: anatomy/physiology of swallow function and of deficits identified secondary to CVA. Results, recommendation and plan of care going forward were discussed with the Patient verbalizing understanding and agreement with all recommendations and education provided. Diet order adjusted,nursing communication entered and staff verbally updated re: results/recommendations/supervision needs following MBS conclusion. - Status Active ST Patient: Active - Contact Information [facility] Speech Therapy:: Mary Kate Govea M.A., CCC-GRADUATE STUDENT INSTRUCTOR [facility] [address] [place] [address] x [phone] [email or web address] 02/01/21 17:48
[2021-02-01 19:34] VITALS: BP 132/78; PULSE 86; RESP 16; TEMP 36.6; O2SAT 100
[2021-02-01] MEDS: Latanoprost 0.005% 1 Bottle 1 DRP EACH EYE (21:01)
[2021-02-01] MEDS: Pramipexole Di-HCl 0.125 MG Tablet PO (21:02)
[2021-02-01] MEDS: Atorvastatin Calcium 80 MG Tablet PO (21:02)
[2021-02-01] MEDS: Amitriptyline 25 MG Tablet PO (21:02)
[2021-02-01] MEDS: MELATONIN 3 MG TABLET PO (21:02)
[2021-02-01] MEDS: tiZANidine HCl 2 MG Tablet PO (21:04)
[2021-02-01] MEDS: Gabapentin 300 MG Capsule PO (21:04)
[2021-02-02] MEDS: Pantoprazole Sodium 40 MG Tablet PO ×2 (05:10→17:33)
[2021-02-02] MEDS: Acetaminophen 500 MG Tablet 1000 MG PO ×3 (05:10→21:29)
[2021-02-02] MEDS: Magnesium Hydroxide 30 ML UDC PO (05:33)
[2021-02-02] MEDS: Dronabinol 2.5 MG Capsule PO ×2 (06:41→17:33)
[2021-02-02] MEDS: Multivitamins,Therapeutic Tablet 1 TABLET PO (08:46)
[2021-02-02] MEDS: Folic Acid 1 MG Tablet PO ×2 (08:46→17:33)
[2021-02-02] MEDS: Aspirin 81 MG TAB.CHEW PO (08:46)
[2021-02-02] MEDS: metFORMIN (XR) 500 MG Tablet PO (08:46)
[2021-02-02] MEDS: Gabapentin 100 MG Capsule 200 MG PO ×2 (08:47→14:01)
[2021-02-02] MEDS: Arthritis Pain Compound 60 CLICK TUBE TOPICAL ×2 (08:47→21:30)
[2021-02-02] MEDS: predniSONE 20 MG Tablet PO (08:47)
[2021-02-02] MEDS: Ipratropium Bromide 0.06% NASAL SPRAY 2 SPRAY NASAL ×2 (08:47→21:28)
[2021-02-02] MEDS: Clopidogrel Bisulfate 75 MG Tablet PO (08:47)
[2021-02-02] MEDS: Tamsulosin HCl 0.4 MG Capsule PO (08:47)
[2021-02-02] MEDS: Enoxaparin 40 MG/0.4 ML Syringe SC (08:47)
[2021-02-02] MEDS: Cyanocobalamin 500 MCG Tablet PO (08:48)
[2021-02-02] MEDS: Senna/Docusate Sodium 1 Tablet 2 TABLET PO ×2 (08:48→21:29)
[2021-02-02] MEDS: Cholecalciferol (VIT D3) 25 MCG TABLET (1,000 UNITS) 125 MCG PO (08:48)
[2021-02-02] MEDS: Sertraline 100 MG Tablet PO (08:49)
[2021-02-02 08:52] VITALS: BP 136/72; PULSE 73; RESP 16; TEMP 36.4; O2SAT 97
--- NOTE | 2021-02-02 12:21 | PCM.PN.BLA ---
Progress Note Afebrile VSS Maintaining appropriate oxygen saturation on RA Oral intake is good. He is very conscious of following the rules for small bites and small sips. Discussed with nursing - no problems that need addressed Reviewed the PT/OT/ST notes Medication list reviewed. He did not have the jerking' of the R leg last night but did take a tizanidine. He tells me that the Left elbow is less painful than yesterday but is still hurting. Uric acid was WNL. He had an EEG yesterday but, we do not have the results yet. He feels much better than he did at admission to the rehab unit. Physical Exam Const alert, oriented x3 and no apparent distress General Appearance: cooperative and comfortable Resp clear to auscultation bilaterally Cardio regular rate, regular rhythm, no rub and no gallops GI normal to inspection, nondistended, normoactive bowel sounds Extremity no pedal edema Extremity Narrative: The swelling in the R elbow is less today and there is decreased erythema and decreased warmth to touch. It is less tender when I palpate. There is a negative Florencio's he denies calf pain at this time. Psych affect normal Assessment & Plan Assessment/Plan (1) Debility: PLAN: He is doing well with therapy and he is very motivated to get better. Will continue therapy. (2) Left pontine CVA: PLAN: Education re: how to avoid future CVA's was given.......zaira about attention to diet, cholesterol control, BP control. (3) Right arm weakness: PLAN: Improving but still with fine motor problems of the hand. He is working on this by using tools in the rehab unit to fix things that are broken. (4) Dysarthria: PLAN: Speech is improving and he is articulating better. (5) Olecranon bursitis of left elbow: PLAN: I belief this is due to gout, even though the UA is WNL.......it could be due to ETOH withdrawal? Will monitor closely for improvement on the Prednisone....if no improvement will need to consider culturing the fluid in the olecranon bursa and/or starting on an antibiotic. (6) Radicular pain of right lower extremity: PLAN: Continue the Gabapentin and titrate as needed. Will need an MRI as an OP. Visit Charges Inpatient E&M: 29552 Subs Hosp L2
[2021-02-02 15:52] VITALS: BMI 28.7
[2021-02-02 19:38] VITALS: BP 148/80; PULSE 77; RESP 18; TEMP 36.5; O2SAT 97
[2021-02-02] MEDS: Pramipexole Di-HCl 0.125 MG Tablet PO (19:53)
[2021-02-02] MEDS: tiZANidine HCl 2 MG Tablet PO (19:53)
[2021-02-02] MEDS: Gabapentin 300 MG Capsule PO (19:54)
[2021-02-02 19:55] VITALS: PULSE 77; RESP 18; O2SAT 97; BMI 28.7
[2021-02-02] MEDS: Bisacodyl 10 MG Suppository RC (20:04)
[2021-02-02] MEDS: Latanoprost 0.005% 1 Bottle 1 DRP EACH EYE (21:28)
[2021-02-02] MEDS: Amitriptyline 25 MG Tablet PO (21:29)
[2021-02-02] MEDS: Atorvastatin Calcium 80 MG Tablet PO (21:29)
[2021-02-02] MEDS: MELATONIN 3 MG TABLET PO (21:29)
--- NOTE | 2021-02-03 01:29 | NURSING ---
REVIEWED AND AGREE WITH [employer] PATCHER'S HANDOFF AND FUNCTIONAL ASSESSMENT CHARTING.
[2021-02-03] MEDS: Acetaminophen 500 MG Tablet 1000 MG PO ×3 (06:45→21:13)
[2021-02-03] MEDS: Enoxaparin 40 MG/0.4 ML Syringe SC (06:45)
[2021-02-03] MEDS: Pantoprazole Sodium 40 MG Tablet PO ×2 (06:46→17:19)
[2021-02-03] MEDS: Dronabinol 2.5 MG Capsule PO ×2 (06:46→17:19)
--- NOTE | 2021-02-03 07:28 | NURSING ---
0630 pt reports that he has a h/a this am which is unusual for him, pt got up and went to the br and pt then stated i really don't feel good today. besides the h/a pt stated tat he had a sore throat, body aches, and chills. pt vs are unremarkable and pt is afebrile. day shift rn aware
[2021-02-03 07:57] VITALS: BP 131/78; PULSE 61; RESP 16; TEMP 36.4; O2SAT 96
[2021-02-03] MEDS: Folic Acid 1 MG Tablet PO ×2 (09:29→17:19)
[2021-02-03] MEDS: metFORMIN (XR) 500 MG Tablet PO (09:29)
[2021-02-03] MEDS: Aspirin 81 MG TAB.CHEW PO (09:29)
[2021-02-03] MEDS: Ipratropium Bromide 0.06% NASAL SPRAY 2 SPRAY NASAL ×3 (09:30→21:17)
[2021-02-03] MEDS: Arthritis Pain Compound 60 CLICK TUBE TOPICAL ×2 (09:30→21:12)
[2021-02-03] MEDS: Gabapentin 100 MG Capsule 200 MG PO ×2 (09:30→14:26)
[2021-02-03] MEDS: predniSONE 20 MG Tablet PO (09:30)
[2021-02-03] MEDS: Multivitamins,Therapeutic Tablet 1 TABLET PO (09:30)
[2021-02-03] MEDS: Tamsulosin HCl 0.4 MG Capsule PO (09:30)
[2021-02-03] MEDS: Cyanocobalamin 500 MCG Tablet PO (09:31)
[2021-02-03] MEDS: Sertraline 100 MG Tablet PO (09:31)
[2021-02-03] MEDS: Cholecalciferol (VIT D3) 25 MCG TABLET (1,000 UNITS) 125 MCG PO (09:31)
[2021-02-03] MEDS: Clopidogrel Bisulfate 75 MG Tablet PO (09:31)
[2021-02-03] MEDS: Senna/Docusate Sodium 1 Tablet 2 TABLET PO ×2 (09:31→21:16)
--- NOTE | 2021-02-03 10:39 | PN_ITS ---
Progress Note Afebrile VSS Maintaining appropriate oxygen saturation on RA Oral intake is good Discussed with nursing - This morning he was c/o a sore throat, myalgias and chills and a rapid COVID was sent and is negative. Reviewed the PT/OT/ST notes Medication list reviewed. The EEG was negative for any epileptiform activity or lateralizing signs. The j erking he is complaining about is primarily the R leg and it happens mostly at night. Denies CP, cough, dysuria, SOB, lightheadedness, loss of taste or smell. Physical Exam Const alert, oriented x3 and no apparent distress General Appearance: cooperative HEENT HEENT Narrative: There is mild injection in the posterior pharynx with no exudate. No cervical adenopathy. nasal mucosa is unremarkable. Nose: nares normal, no nasal polyps, nasal mucous membranes and turbinates normal and no nasal discharge Chest Chest: symmetrical chest wall rise Resp clear to auscultation bilaterally Cardio regular rate and regular rhythm GI normal to inspection, nondistended, normoactive bowel sounds Extremity Extremity Narrative: The left elbow is still mildly red and there is still a small effusion. the eschar distal to the elbow is now surrounded by a small rim of redness. There is no discharge. Skin General Skin Exam: no breakdown Rashes: no rashes Assessment & Plan Assessment/Plan (1) Debility: (2) Left pontine CVA: (3) Right arm weakness: (4) Olecranon bursitis of left elbow: PLAN: 1. The COVID was negative. The examination of the pharynx is most consistent with PN drip. He is afebrile at this time. No tx at this time. OK to use throat lozenges. 2. I still think he has gout and it is improving with the Prednisone but, at this time I can not r/o cellulitis. Will continue to monitor closely. 3. Continue therapy. Visit Charges Inpatient E&M: 10699 Subs Hosp L2
[2021-02-03 17:00] VITALS: BMI 28.7
[2021-02-03] MEDS: tiZANidine HCl 2 MG Tablet PO (18:35)
[2021-02-03 19:17] VITALS: BP 154/83; PULSE 87; RESP 18; TEMP 36.7; O2SAT 97
[2021-02-03] MEDS: Gabapentin 300 MG Capsule PO (21:12)
[2021-02-03] MEDS: MELATONIN 3 MG TABLET PO (21:13)
[2021-02-03] MEDS: Pramipexole Di-HCl 0.125 MG Tablet PO (21:13)
[2021-02-03] MEDS: Atorvastatin Calcium 80 MG Tablet PO (21:13)
[2021-02-03] MEDS: Amitriptyline 25 MG Tablet PO (21:13)
[2021-02-03] MEDS: Latanoprost 0.005% 1 Bottle 1 DRP EACH EYE (21:17)
[2021-02-04 04:16] VITALS: BMI 28.7
[2021-02-04] MEDS: Enoxaparin 40 MG/0.4 ML Syringe SC (06:51)
[2021-02-04] MEDS: Acetaminophen 500 MG Tablet 1000 MG PO ×3 (06:51→21:56)
[2021-02-04] MEDS: Pantoprazole Sodium 40 MG Tablet PO ×2 (06:51→16:24)
[2021-02-04] MEDS: Dronabinol 2.5 MG Capsule PO ×2 (06:52→16:19)
[2021-02-04] MEDS: Gabapentin 100 MG Capsule 200 MG PO ×2 (07:37→13:11)
[2021-02-04] MEDS: Cholecalciferol (VIT D3) 25 MCG TABLET (1,000 UNITS) 125 MCG PO (07:37)
[2021-02-04] MEDS: Cyanocobalamin 500 MCG Tablet PO (07:38)
[2021-02-04] MEDS: Aspirin 81 MG TAB.CHEW PO (07:38)
[2021-02-04] MEDS: Folic Acid 1 MG Tablet PO ×2 (07:38→16:19)
[2021-02-04] MEDS: Sertraline 100 MG Tablet PO (07:38)
[2021-02-04] MEDS: Multivitamins,Therapeutic Tablet 1 TABLET PO (07:39)
[2021-02-04] MEDS: metFORMIN (XR) 500 MG Tablet PO (07:40)
[2021-02-04] MEDS: Clopidogrel Bisulfate 75 MG Tablet PO (07:40)
[2021-02-04] MEDS: predniSONE 20 MG Tablet PO (07:40)
[2021-02-04] MEDS: Tamsulosin HCl 0.4 MG Capsule PO (07:44)
[2021-02-04 08:00] VITALS: BP 119/85; PULSE 79; RESP 18; TEMP 36.4; O2SAT 97
--- NOTE | 2021-02-04 10:37 | PCM.PN.BLA ---
Progress Note Afebrile VSS Maintaining appropriate oxygen saturation on RA Oral intake is good Discussed with nursing - no problems that need addressed Reviewed the PT/OT/ST notes Medication list reviewed. Darian tells me that he had spasms in his right leg last night and he felt jerky all over. He did not sleep well. He feels anxious at night. Denies any trouble urinating. He still has some pain in the left elbow. He denies chest pain, shortness of breath, hemoptysis, nausea/vomiting/abdominal pain, lightheadedness, cephalgia. Physical Exam Const alert and oriented x3 General Appearance: cooperative HEENT moist oral mucous membranes Resp clear to auscultation bilaterally Cardio regular rate, regular rhythm and no gallops Extremity Extremity Narrative: The Left elbow is still painful to touch but less so than 3 days ago. The edema is significantly decreased and the redness is better but, there is still some erythema and there is still mild increased warmth to touch. There is a small eschar distal to the elbow and there is now redness around it and he is tender to touch in that area. There is no DC. Assessment & Plan Assessment/Plan (1) Cellulitis: (2) Radicular pain of right lower extremity: (3) Chronic back pain: (4) Muscle spasm: (5) Anxiety: PLAN: Duricef 1 GM BID for 7 days DC the Elavil. Increased the Gabapentin at HS to 400 mg Give 4mg of Tizanidine at HS If this helps will try to DC the Mirapex. DC the Melatonin Continue the Sertraline. Visit Charges Inpatient E&M: 39864 Subs Hosp L2
[2021-02-04] MEDS: Arthritis Pain Compound 60 CLICK TUBE TOPICAL ×2 (13:11→21:55)
[2021-02-04 16:07] VITALS: BMI 28.7
[2021-02-04] MEDS: tiZANidine HCl 2 MG Tablet PO (16:22)
[2021-02-04 19:24] VITALS: BP 127/72; PULSE 85; RESP 18; TEMP 36.6; O2SAT 96
[2021-02-04] MEDS: Gabapentin 400 MG Capsule PO (19:36)
[2021-02-04] MEDS: Ipratropium Bromide 0.06% NASAL SPRAY 2 SPRAY NASAL (21:56)
[2021-02-04] MEDS: Atorvastatin Calcium 80 MG Tablet PO (21:56)
[2021-02-04] MEDS: Pramipexole Di-HCl 0.125 MG Tablet PO (21:56)
[2021-02-04] MEDS: Latanoprost 0.005% 1 Bottle 1 DRP EACH EYE (21:57)
[2021-02-04] MEDS: tiZANidine HCl 2 MG Tablet 4 MG PO (21:57)
[2021-02-04] MEDS: Senna/Docusate Sodium 1 Tablet 2 TABLET PO (21:58)
[2021-02-05 02:18] VITALS: BMI 28.7
[2021-02-05] MEDS: tiZANidine HCl 2 MG Tablet PO ×2 (02:50→14:05)
[2021-02-05] MEDS: Pantoprazole Sodium 40 MG Tablet PO ×2 (06:28→16:59)
[2021-02-05] MEDS: Acetaminophen 500 MG Tablet 1000 MG PO ×3 (06:28→20:11)
[2021-02-05] MEDS: Enoxaparin 40 MG/0.4 ML Syringe SC (06:28)
[2021-02-05] MEDS: Dronabinol 2.5 MG Capsule PO ×2 (06:50→16:59)
[2021-02-05 07:42] VITALS: BP 123/74; PULSE 70; RESP 18; TEMP 36.4; O2SAT 98
[2021-02-05] MEDS: Senna/Docusate Sodium 1 Tablet 2 TABLET PO ×2 (08:40→20:11)
[2021-02-05] MEDS: Cholecalciferol (VIT D3) 25 MCG TABLET (1,000 UNITS) 125 MCG PO (08:40)
[2021-02-05] MEDS: Sertraline 100 MG Tablet PO (08:41)
[2021-02-05] MEDS: Tamsulosin HCl 0.4 MG Capsule PO (08:41)
[2021-02-05] MEDS: metFORMIN (XR) 500 MG Tablet PO (08:41)
[2021-02-05] MEDS: Multivitamins,Therapeutic Tablet 1 TABLET PO (08:41)
[2021-02-05] MEDS: Folic Acid 1 MG Tablet PO ×2 (08:41→16:59)
[2021-02-05] MEDS: Clopidogrel Bisulfate 75 MG Tablet PO (08:41)
[2021-02-05] MEDS: Cyanocobalamin 500 MCG Tablet PO (08:41)
[2021-02-05] MEDS: Gabapentin 100 MG Capsule 200 MG PO ×2 (08:41→14:01)
[2021-02-05] MEDS: Ipratropium Bromide 0.06% NASAL SPRAY 2 SPRAY NASAL ×2 (08:43→20:10)
[2021-02-05] MEDS: Aspirin 81 MG TAB.CHEW PO (08:44)
[2021-02-05] MEDS: Arthritis Pain Compound 60 CLICK TUBE TOPICAL ×2 (08:44→20:10)
[2021-02-05 14:39] VITALS: BMI 28.7
[2021-02-05 19:30] VITALS: BP 121/74; PULSE 82; RESP 16; TEMP 36.6; O2SAT 97
[2021-02-05] MEDS: Gabapentin 400 MG Capsule PO (20:09)
[2021-02-05] MEDS: Atorvastatin Calcium 80 MG Tablet PO (20:10)
[2021-02-05] MEDS: Pramipexole Di-HCl 0.125 MG Tablet PO (20:10)
[2021-02-05] MEDS: Latanoprost 0.005% 1 Bottle 1 DRP EACH EYE (20:11)
[2021-02-05] MEDS: tiZANidine HCl 2 MG Tablet 4 MG PO (22:10)
[2021-02-05] MEDS: Cefadroxil 500 MG CAPSULE 1000 MG PO (22:10)
[2021-02-05 22:20] VITALS: BMI 28.7
[2021-02-06] MEDS: Acetaminophen 500 MG Tablet 1000 MG PO ×3 (06:47→22:46)
[2021-02-06] MEDS: Pantoprazole Sodium 40 MG Tablet PO ×2 (06:47→16:48)
[2021-02-06] MEDS: Enoxaparin 40 MG/0.4 ML Syringe SC (06:47)
[2021-02-06] MEDS: Dronabinol 2.5 MG Capsule PO ×2 (06:47→15:22)
[2021-02-06 07:39] VITALS: BP 135/79; PULSE 66; RESP 16; TEMP 36.4; O2SAT 95
[2021-02-06] MEDS: Arthritis Pain Compound 60 CLICK TUBE TOPICAL ×2 (09:13→20:18)
[2021-02-06] MEDS: Ipratropium Bromide 0.06% NASAL SPRAY 2 SPRAY NASAL ×2 (09:13→20:17)
[2021-02-06] MEDS: Gabapentin 100 MG Capsule 200 MG PO ×2 (09:14→15:22)
[2021-02-06] MEDS: Sertraline 100 MG Tablet PO (09:15)
[2021-02-06] MEDS: Aspirin 81 MG TAB.CHEW PO (09:15)
[2021-02-06] MEDS: Folic Acid 1 MG Tablet PO ×2 (09:15→16:46)
[2021-02-06] MEDS: Cholecalciferol (VIT D3) 25 MCG TABLET (1,000 UNITS) 125 MCG PO (09:15)
[2021-02-06] MEDS: Tamsulosin HCl 0.4 MG Capsule PO (09:17)
[2021-02-06] MEDS: Cefadroxil 500 MG CAPSULE 1000 MG PO ×2 (09:17→22:46)
[2021-02-06] MEDS: Clopidogrel Bisulfate 75 MG Tablet PO (09:17)
[2021-02-06] MEDS: metFORMIN (XR) 500 MG Tablet PO (09:17)
[2021-02-06] MEDS: Multivitamins,Therapeutic Tablet 1 TABLET PO (09:19)
[2021-02-06] MEDS: Cyanocobalamin 500 MCG Tablet PO (09:19)
[2021-02-06] MEDS: Senna/Docusate Sodium 1 Tablet 2 TABLET PO ×2 (10:01→20:17)
[2021-02-06] MEDS: tiZANidine HCl 2 MG Tablet PO (11:21)
[2021-02-06 12:52] VITALS: BMI 28.7
[2021-02-06 19:37] VITALS: BP 118/74; PULSE 87; RESP 18; TEMP 36.4; O2SAT 95
[2021-02-06] MEDS: Latanoprost 0.005% 1 Bottle 1 DRP EACH EYE (20:17)
[2021-02-06] MEDS: Atorvastatin Calcium 80 MG Tablet PO (20:17)
[2021-02-06] MEDS: Gabapentin 400 MG Capsule PO (20:18)
[2021-02-06] MEDS: Pramipexole Di-HCl 0.125 MG Tablet PO (22:46)
[2021-02-06] MEDS: tiZANidine HCl 2 MG Tablet 4 MG PO (22:46)
[2021-02-07] MEDS: Acetaminophen 500 MG Tablet 1000 MG PO ×3 (05:04→22:31)
[2021-02-07] MEDS: Enoxaparin 40 MG/0.4 ML Syringe SC (05:05)
[2021-02-07] MEDS: Pantoprazole Sodium 40 MG Tablet PO ×2 (05:05→17:09)
[2021-02-07] MEDS: Dronabinol 2.5 MG Capsule PO ×2 (06:57→17:09)
[2021-02-07] MEDS: tiZANidine HCl 2 MG Tablet PO (07:03)
[2021-02-07 07:30] VITALS: BP 119/80; PULSE 62; RESP 12; TEMP 36.3; O2SAT 96
[2021-02-07] MEDS: Folic Acid 1 MG Tablet PO ×2 (07:56→17:09)
[2021-02-07] MEDS: Multivitamins,Therapeutic Tablet 1 TABLET PO (07:56)
[2021-02-07] MEDS: Aspirin 81 MG TAB.CHEW PO (07:56)
[2021-02-07] MEDS: Cholecalciferol (VIT D3) 25 MCG TABLET (1,000 UNITS) 125 MCG PO (07:56)
[2021-02-07] MEDS: Gabapentin 100 MG Capsule 200 MG PO (07:56)
[2021-02-07] MEDS: Sertraline 100 MG Tablet PO (07:56)
[2021-02-07] MEDS: Cyanocobalamin 500 MCG Tablet PO (07:56)
[2021-02-07] MEDS: Cefadroxil 500 MG CAPSULE 1000 MG PO ×2 (07:56→22:33)
[2021-02-07] MEDS: Senna/Docusate Sodium 1 Tablet 2 TABLET PO ×2 (07:56→22:31)
[2021-02-07] MEDS: Tamsulosin HCl 0.4 MG Capsule PO (07:56)
[2021-02-07] MEDS: Arthritis Pain Compound 60 CLICK TUBE TOPICAL ×2 (07:58→22:32)
[2021-02-07] MEDS: Ipratropium Bromide 0.06% NASAL SPRAY 2 SPRAY NASAL ×2 (07:58→22:32)
[2021-02-07] MEDS: Clopidogrel Bisulfate 75 MG Tablet PO (07:59)
[2021-02-07] MEDS: metFORMIN (XR) 500 MG Tablet PO (07:59)
--- NOTE | 2021-02-07 11:27 | PCM.PN.BLA ---
Progress Note Day #3 cefadroxil for cellulitis of the L elbow Afebrile VSS Maintaining appropriate oxygen saturation on RA Oral intake is good Discussed with nursing - no problems that need addressed Reviewed the PT/OT/ST notes Medication list reviewed. Usually only taking 1 dose of tizanidine during the day. Receives 4 mg at at bedtime. He is c/o increased pain in the R leg with therapy now. He denies drowsiness with the Gabapentin but he does get drowsy with Tizanidine and would rather no take this medication if he does not have to. He denies chest pain, shortness of breath, hemoptysis, calf pain, nausea/vomiting, constipation/diarrhea. His only real complaint is he does not sleep well at night and the R leg pain is increasing again........he has developed some tolerance to the Gabapentin. Physical Exam Const alert and oriented x3 Constitutional Narrative: Not appear to be in any significant distress. HEENT moist oral mucous membranes Resp clear to auscultation bilaterally Cardio regular rate, regular rhythm and no gallops GI normal to inspection, nondistended, normoactive bowel sounds Extremity Extremity Narrative: The L elbow is still painful but, not nearly as bad. the erythema is minimal now and there is only a very mild increase in warmth to touch. I can touch the elbow without him withdrawing now. Neuro Neuro Narrative: Making good progress with PT/OT/ST. All recent notes were reviewed. Psych cooperative Assessment & Plan Assessment/Plan (1) Radicular pain of right lower extremity: (2) Left pontine CVA: PLAN: 1. Increase the Gabapentin to 600 mg at HS and 300 mg BID. 2. DC the Mirapex 3. Continue the Cefadroxil for a total of 7 days. 4. If he continues to c/o pain will consider adding Cymbalta or Effexor to the drug regimen. 5. COntinue therapy. Visit Charges Inpatient E&M: 06534 Subs Hosp L2
[2021-02-07] MEDS: Gabapentin 300 MG Capsule PO (14:12)
[2021-02-07 16:29] VITALS: BMI 28.7
[2021-02-07] MEDS: Gabapentin 600 MG Tablet PO (21:38)
[2021-02-07] MEDS: Latanoprost 0.005% 1 Bottle 1 DRP EACH EYE (22:31)
[2021-02-07] MEDS: tiZANidine HCl 2 MG Tablet 4 MG PO (22:32)
[2021-02-07] MEDS: Atorvastatin Calcium 80 MG Tablet PO (22:33)
[2021-02-07 22:35] VITALS: BP 150/87; PULSE 89; RESP 18; TEMP 36.6; O2SAT 96; BMI 28.7
[2021-02-08] MEDS: Enoxaparin 40 MG/0.4 ML Syringe SC (06:51)
[2021-02-08] MEDS: Pantoprazole Sodium 40 MG Tablet PO ×2 (06:51→16:10)
[2021-02-08] MEDS: Acetaminophen 500 MG Tablet 1000 MG PO ×3 (06:51→21:29)
[2021-02-08] MEDS: Dronabinol 2.5 MG Capsule PO ×2 (06:51→16:10)
[2021-02-08 07:08] VITALS: BP 108/71; PULSE 71; RESP 16; TEMP 36.6; O2SAT 97
[2021-02-08] MEDS: Aspirin 81 MG TAB.CHEW PO (09:43)
[2021-02-08] MEDS: metFORMIN (XR) 500 MG Tablet PO (09:43)
[2021-02-08] MEDS: Folic Acid 1 MG Tablet PO ×2 (09:43→16:10)
[2021-02-08] MEDS: Clopidogrel Bisulfate 75 MG Tablet PO (09:44)
[2021-02-08] MEDS: Cefadroxil 500 MG CAPSULE 1000 MG PO ×2 (09:44→21:30)
[2021-02-08] MEDS: Ipratropium Bromide 0.06% NASAL SPRAY 2 SPRAY NASAL ×2 (09:44→21:31)
[2021-02-08] MEDS: Tamsulosin HCl 0.4 MG Capsule PO (09:44)
[2021-02-08] MEDS: Cholecalciferol (VIT D3) 25 MCG TABLET (1,000 UNITS) 125 MCG PO (09:45)
[2021-02-08] MEDS: Sertraline 100 MG Tablet PO (09:45)
[2021-02-08] MEDS: Senna/Docusate Sodium 1 Tablet 2 TABLET PO ×2 (09:45→21:31)
[2021-02-08] MEDS: Cyanocobalamin 500 MCG Tablet PO (09:45)
[2021-02-08] MEDS: Arthritis Pain Compound 60 CLICK TUBE TOPICAL ×2 (09:49→21:31)
[2021-02-08] MEDS: Multivitamins,Therapeutic Tablet 1 TABLET PO (09:49)
--- NOTE | 2021-02-08 10:29 | PCM.PN.BLA ---
Progress Note Darian was seen on team rounds today and his ex- was present in the room for rounds. All her questions were answered to he satisfaction. She will be staying with him a DC. Afebrile VSS Maintaining appropriate oxygen saturation on RA Oral intake is good Discussed with nursing - no problems that need addressed Reviewed the PT/OT/ST notes Medication list reviewed. He denies chest pain, shortness of breath at rest or with exertion, nausea/vomiting/abdominal pain/diarrhea/constipation, lightheadedness, shaking chills and night sweats. He continues to complain of some mild pain in the left elbow....zaira if he bumps it. Physical Exam Const alert, oriented x3 and no apparent distress Constitutional Narrative: Sitting in the recliner at the bedside General Appearance: cooperative, well kempt and well developed Eyes PERRL and EOMs intact bilaterally Chest Chest: symmetrical chest wall rise Resp clear to auscultation bilaterally Resp Narrative: not tachypneic with exertion Effort and Inspection: able to speak in complete sentences Cardio regular rate, regular rhythm, no murmurs and no gallops GI normal to inspection, nondistended, normoactive bowel sounds Extremity normal capillary refill, no calf tenderness and no pedal edema Extremity Narrative: the R elbow swelling is much improved. the erythema is improving. Barely any increased warmth to touch with palpation. Skin General Skin Exam: no breakdown Rashes: no rashes Neuro Neuro Narrative: He is very mindful when he is eating to follow the instructions given to him by the ST. He is doing well with PT and he is ambulating on various surfaces with no loss of balance. Assessment & Plan Assessment/Plan (1) Debility: PLAN: Continue therapy (2) Left pontine CVA: PLAN: Continue aspirin, clopidogrel, statin (3) Right arm weakness: PLAN: Improving (4) Cellulitis: PLAN: Continue Duricef (5) Pseudobulbar affect: PLAN: Affect is much more consistent with no angry outbursts recently (6) Chronic back pain: PLAN: Pain in the back and the right lower extremity is much better controlled than at admission we will continue gabapentin and as needed tizanidine. Visit Charges Inpatient E&M: 20262 Subs Hosp L2
[2021-02-08] MEDS: Gabapentin 300 MG Capsule PO ×2 (10:42→16:10)
[2021-02-08 13:03] VITALS: BMI 28.7
--- NOTE | 2021-02-08 13:41 | CASEMGMT ---
Social Work Team meeting held. Patient present as well as patient ex-. Patient to continue with further care and treatment on the Rehab Unit. Patient plans to discharge to home with ex- for support and assistance as time of discharge. No discharge date set at this time. Patient to have re-team meeting next week, Sunday. ' Will continue to follow. Lesli LEWIS, MYKEL-S
[2021-02-08 19:20] VITALS: BP 138/76; PULSE 72; RESP 16; TEMP 36.3; O2SAT 97
[2021-02-08] MEDS: Atorvastatin Calcium 80 MG Tablet PO (21:30)
[2021-02-08] MEDS: Gabapentin 600 MG Tablet PO (21:31)
[2021-02-08] MEDS: Latanoprost 0.005% 1 Bottle 1 DRP EACH EYE (21:32)
[2021-02-08] MEDS: tiZANidine HCl 2 MG Tablet 4 MG PO (21:32)
[2021-02-08 23:08] VITALS: BP 138/76; PULSE 72; RESP 16; TEMP 36.3; O2SAT 97
[2021-02-08 23:11] VITALS: PULSE 72; O2SAT 97
[2021-02-09 00:28] VITALS: BMI 28.7
--- NOTE | 2021-02-09 02:44 | NURSING ---
Pt cooperative with care. Assisted to bathroom. Pt got self ready for bed. All meds taken without difficulty.
[2021-02-09] MEDS: Acetaminophen 500 MG Tablet 1000 MG PO ×3 (05:22→23:00)
[2021-02-09] MEDS: Pantoprazole Sodium 40 MG Tablet PO ×2 (05:22→17:44)
[2021-02-09] MEDS: Enoxaparin 40 MG/0.4 ML Syringe SC (05:22)
[2021-02-09] MEDS: Dronabinol 2.5 MG Capsule PO ×2 (05:22→17:44)
[2021-02-09] MEDS: tiZANidine HCl 2 MG Tablet PO ×2 (05:51→17:45)
[2021-02-09 07:48] VITALS: BP 132/80; PULSE 73; RESP 16; TEMP 36.2; O2SAT 97
[2021-02-09] MEDS: Arthritis Pain Compound 60 CLICK TUBE TOPICAL ×2 (08:48→22:00)
[2021-02-09] MEDS: metFORMIN (XR) 500 MG Tablet PO (08:48)
[2021-02-09] MEDS: Aspirin 81 MG TAB.CHEW PO (08:48)
[2021-02-09] MEDS: Multivitamins,Therapeutic Tablet 1 TABLET PO (08:48)
[2021-02-09] MEDS: Folic Acid 1 MG Tablet PO ×2 (08:48→17:44)
[2021-02-09] MEDS: Ipratropium Bromide 0.06% NASAL SPRAY 2 SPRAY NASAL ×2 (08:48→23:00)
[2021-02-09] MEDS: Senna/Docusate Sodium 1 Tablet 2 TABLET PO ×2 (08:49→23:00)
[2021-02-09] MEDS: Cefadroxil 500 MG CAPSULE 1000 MG PO ×2 (08:49→23:00)
[2021-02-09] MEDS: Tamsulosin HCl 0.4 MG Capsule PO (08:49)
[2021-02-09] MEDS: Clopidogrel Bisulfate 75 MG Tablet PO (08:49)
[2021-02-09] MEDS: Cholecalciferol (VIT D3) 25 MCG TABLET (1,000 UNITS) 125 MCG PO (08:50)
[2021-02-09] MEDS: Cyanocobalamin 500 MCG Tablet PO (08:50)
[2021-02-09] MEDS: Sertraline 100 MG Tablet PO (08:50)
[2021-02-09] MEDS: Gabapentin 300 MG Capsule PO ×2 (09:51→15:14)
[2021-02-09 17:00] VITALS: BMI 28.7
[2021-02-09 19:30] VITALS: BP 140/89; PULSE 85; RESP 16; TEMP 36.4; O2SAT 97
[2021-02-09 23:00] VITALS: BMI 28.7
[2021-02-09] MEDS: tiZANidine HCl 2 MG Tablet 4 MG PO (23:00)
[2021-02-09] MEDS: Atorvastatin Calcium 80 MG Tablet PO (23:00)
[2021-02-09] MEDS: Gabapentin 600 MG Tablet PO (23:00)
[2021-02-09] MEDS: Latanoprost 0.005% 1 Bottle 1 DRP EACH EYE (23:00)
[2021-02-10] MEDS: Enoxaparin 40 MG/0.4 ML Syringe SC (04:55)
[2021-02-10] MEDS: Pantoprazole Sodium 40 MG Tablet PO ×2 (04:56→17:24)
[2021-02-10] MEDS: Acetaminophen 500 MG Tablet 1000 MG PO ×3 (04:56→22:12)
[2021-02-10] MEDS: Dronabinol 2.5 MG Capsule PO ×2 (07:48→17:24)
[2021-02-10 08:04] VITALS: BP 120/74; PULSE 60; RESP 16; TEMP 36.2; O2SAT 95
[2021-02-10] MEDS: Arthritis Pain Compound 60 CLICK TUBE TOPICAL ×2 (08:31→22:11)
[2021-02-10] MEDS: Ipratropium Bromide 0.06% NASAL SPRAY 2 SPRAY NASAL ×2 (08:31→22:11)
[2021-02-10] MEDS: Clopidogrel Bisulfate 75 MG Tablet PO (08:31)
[2021-02-10] MEDS: Cefadroxil 500 MG CAPSULE 1000 MG PO ×2 (08:31→22:12)
[2021-02-10] MEDS: Tamsulosin HCl 0.4 MG Capsule PO (08:31)
[2021-02-10] MEDS: Sertraline 100 MG Tablet PO (08:32)
[2021-02-10] MEDS: Gabapentin 300 MG Capsule PO ×2 (08:32→14:33)
[2021-02-10] MEDS: Cyanocobalamin 500 MCG Tablet PO (08:32)
[2021-02-10] MEDS: metFORMIN (XR) 500 MG Tablet PO (08:32)
[2021-02-10] MEDS: Folic Acid 1 MG Tablet PO ×2 (08:32→17:24)
[2021-02-10] MEDS: Cholecalciferol (VIT D3) 25 MCG TABLET (1,000 UNITS) 125 MCG PO (08:32)
[2021-02-10] MEDS: Multivitamins,Therapeutic Tablet 1 TABLET PO (08:32)
[2021-02-10] MEDS: Aspirin 81 MG TAB.CHEW PO (08:33)
[2021-02-10 11:38] VITALS: BMI 28.7
[2021-02-10 19:30] VITALS: BP 137/82; PULSE 66; RESP 18; TEMP 36.4; O2SAT 95
--- NOTE | 2021-02-10 20:12 | PCM.PN.BLA ---
Progress Note Day #5 cefadroxil for treatment of cellulitis of the left elbow Afebrile VSS-blood pressure is well controlled. Maintaining appropriate oxygen saturation on RA Oral intake is good Discussed with nursing - no problems that need addressed Reviewed the PT/OT/ST notes. He is progressing very well. Medication list reviewed. He continues to c/o jumpy, jerky movements of the R leg despite increase in the Gabapentin although the pain in the R leg is better and the back pain and he is sleeping better. He was taking Pramipex at admission and was still having the jumping. I think he may have been experiencing augmentation. It got better when I started the Gabapentin but, when the Pramipex was discontinued the jerking came back. EEG was negative for seizure activity. The R elbow pain is much improved but, it is still sore to touch. Physical Exam Resp normal respiratory effort and clear to auscultation bilaterally Cardio regular rate, regular rhythm and no gallops GI normal to inspection, nondistended, normoactive bowel sounds Extremity no calf tenderness and no pedal edema Extremity Narrative: there is still a small effusion of the R olecranon. there is no warmth to touch and no significant erythema. No openings in the skin. No hyperaesthesia. Psych affect normal Assessment & Plan Assessment/Plan (1) Olecranon bursitis of left elbow: (2) Right arm weakness: (3) Debility: (4) Left pontine CVA: (5) Cellulitis: PLAN: 1. continue the Duricef for a full 10 days 2. Try Toradol 10 mg PO Q 6 H PRN pain in the L elbow......max is 8 doses. 3. Continue therapy 4. continue the current drug regimen 5. Add back the Pramipexole and taper off over the next few weeks . Visit Charges Inpatient E&M: 28704 Subs Hosp L2
[2021-02-10] MEDS: Gabapentin 600 MG Tablet PO (20:29)
[2021-02-10] MEDS: Senna/Docusate Sodium 1 Tablet 2 TABLET PO (22:12)
[2021-02-10] MEDS: Atorvastatin Calcium 80 MG Tablet PO (22:12)
[2021-02-10] MEDS: Latanoprost 0.005% 1 Bottle 1 DRP EACH EYE (22:13)
[2021-02-10] MEDS: tiZANidine HCl 2 MG Tablet 4 MG PO (22:13)
[2021-02-10] MEDS: Pramipexole Di-HCl 0.125 MG Tablet PO (22:17)
[2021-02-11 03:27] VITALS: BMI 28.7
[2021-02-11] MEDS: Pantoprazole Sodium 40 MG Tablet PO ×2 (05:05→17:09)
[2021-02-11] MEDS: Enoxaparin 40 MG/0.4 ML Syringe SC (05:05)
[2021-02-11] MEDS: Acetaminophen 500 MG Tablet 1000 MG PO ×3 (05:05→22:44)
[2021-02-11] MEDS: Dronabinol 2.5 MG Capsule PO ×2 (06:42→17:09)
[2021-02-11 07:35] VITALS: BP 118/69; PULSE 58; RESP 18; TEMP 36.4; O2SAT 94
[2021-02-11] MEDS: Folic Acid 1 MG Tablet PO ×2 (08:34→17:09)
[2021-02-11] MEDS: Multivitamins,Therapeutic Tablet 1 TABLET PO (08:34)
[2021-02-11] MEDS: metFORMIN (XR) 500 MG Tablet PO (08:34)
[2021-02-11] MEDS: Ipratropium Bromide 0.06% NASAL SPRAY 2 SPRAY NASAL ×2 (08:34→22:41)
[2021-02-11] MEDS: Sertraline 100 MG Tablet PO (08:35)
[2021-02-11] MEDS: Tamsulosin HCl 0.4 MG Capsule PO (08:35)
[2021-02-11] MEDS: Cholecalciferol (VIT D3) 25 MCG TABLET (1,000 UNITS) 125 MCG PO (08:35)
[2021-02-11] MEDS: Cefadroxil 500 MG CAPSULE 1000 MG PO ×2 (08:35→22:41)
[2021-02-11] MEDS: Cyanocobalamin 500 MCG Tablet PO (08:35)
[2021-02-11] MEDS: Aspirin 81 MG TAB.CHEW PO (08:35)
[2021-02-11] MEDS: Clopidogrel Bisulfate 75 MG Tablet PO (08:35)
[2021-02-11] MEDS: Arthritis Pain Compound 60 CLICK TUBE TOPICAL ×2 (08:35→22:41)
[2021-02-11] MEDS: Gabapentin 300 MG Capsule PO ×2 (08:39→14:19)
[2021-02-11 16:20] VITALS: BMI 28.7
[2021-02-11 19:22] VITALS: BP 124/82; PULSE 76; RESP 16; TEMP 36.3; O2SAT 97
[2021-02-11] MEDS: Pramipexole Di-HCl 0.125 MG Tablet PO (22:42)
[2021-02-11] MEDS: Gabapentin 600 MG Tablet PO (22:43)
[2021-02-11] MEDS: Atorvastatin Calcium 80 MG Tablet PO (22:43)
[2021-02-11] MEDS: tiZANidine HCl 2 MG Tablet 4 MG PO (22:44)
[2021-02-11] MEDS: Latanoprost 0.005% 1 Bottle 1 DRP EACH EYE (22:45)
[2021-02-11] MEDS: Ketorolac 10 MG Tablet PO (22:49)
[2021-02-12 00:13] VITALS: BMI 28.7
[2021-02-12 00:14] VITALS: PULSE 76; RESP 16
[2021-02-12] MEDS: Enoxaparin 40 MG/0.4 ML Syringe SC (05:45)
[2021-02-12] MEDS: Pantoprazole Sodium 40 MG Tablet PO ×2 (05:45→16:47)
[2021-02-12] MEDS: Acetaminophen 500 MG Tablet 1000 MG PO ×3 (05:45→21:21)
[2021-02-12] MEDS: Dronabinol 2.5 MG Capsule PO ×2 (05:46→16:47)
[2021-02-12 07:30] VITALS: BP 113/66; PULSE 63; RESP 16; TEMP 36.3; O2SAT 97
[2021-02-12] MEDS: Cyanocobalamin 500 MCG Tablet PO (07:56)
[2021-02-12] MEDS: Gabapentin 300 MG Capsule PO ×2 (07:56→13:44)
[2021-02-12] MEDS: Clopidogrel Bisulfate 75 MG Tablet PO (07:56)
[2021-02-12] MEDS: Cefadroxil 500 MG CAPSULE 1000 MG PO (07:56)
[2021-02-12] MEDS: Multivitamins,Therapeutic Tablet 1 TABLET PO (07:56)
[2021-02-12] MEDS: Folic Acid 1 MG Tablet PO ×2 (07:56→16:47)
[2021-02-12] MEDS: Ipratropium Bromide 0.06% NASAL SPRAY 2 SPRAY NASAL ×2 (07:57→21:21)
[2021-02-12] MEDS: Arthritis Pain Compound 60 CLICK TUBE TOPICAL ×2 (07:57→21:20)
[2021-02-12] MEDS: metFORMIN (XR) 500 MG Tablet PO (07:58)
[2021-02-12] MEDS: Cholecalciferol (VIT D3) 25 MCG TABLET (1,000 UNITS) 125 MCG PO (07:59)
[2021-02-12] MEDS: Tamsulosin HCl 0.4 MG Capsule PO (08:00)
[2021-02-12] MEDS: Sertraline 100 MG Tablet PO (08:01)
[2021-02-12] MEDS: tiZANidine HCl 2 MG Tablet PO (14:57)
[2021-02-12 15:05] VITALS: BMI 28.7
[2021-02-12] MEDS: Ketorolac 10 MG Tablet PO ×2 (16:47→23:05)
[2021-02-12 19:55] VITALS: BP 131/75; PULSE 75; RESP 18; TEMP 36.5; O2SAT 97
[2021-02-12] MEDS: Gabapentin 600 MG Tablet PO (20:01)
[2021-02-12] MEDS: Pramipexole Di-HCl 0.125 MG Tablet PO (21:21)
[2021-02-12] MEDS: Atorvastatin Calcium 80 MG Tablet PO (21:21)
[2021-02-12] MEDS: Latanoprost 0.005% 1 Bottle 1 DRP EACH EYE (21:22)
[2021-02-12] MEDS: tiZANidine HCl 2 MG Tablet 4 MG PO (21:22)
[2021-02-13 01:44] VITALS: BMI 28.7
--- NOTE | 2021-02-13 04:09 | NURSING ---
REVIEWED AND AGREE WITH NUT FORMER'S FUNCTIONAL ASSESSMENT AND HANDOFF CHARTING.
[2021-02-13] MEDS: Enoxaparin 40 MG/0.4 ML Syringe SC (06:34)
[2021-02-13] MEDS: Dronabinol 2.5 MG Capsule PO ×2 (06:35→16:18)
[2021-02-13] MEDS: Pantoprazole Sodium 40 MG Tablet PO ×2 (06:35→16:18)
[2021-02-13] MEDS: Ketorolac 10 MG Tablet PO (06:35)
[2021-02-13] MEDS: Acetaminophen 500 MG Tablet 1000 MG PO ×3 (06:35→21:13)
[2021-02-13] MEDS: tiZANidine HCl 2 MG Tablet PO ×2 (06:38→16:18)
[2021-02-13 07:30] VITALS: BP 121/80; PULSE 60; RESP 18; TEMP 36.6; O2SAT 96
[2021-02-13] MEDS: Gabapentin 300 MG Capsule PO ×2 (08:10→13:44)
[2021-02-13] MEDS: Folic Acid 1 MG Tablet PO ×2 (08:10→16:18)
[2021-02-13] MEDS: metFORMIN (XR) 500 MG Tablet PO (08:10)
[2021-02-13] MEDS: Cholecalciferol (VIT D3) 25 MCG TABLET (1,000 UNITS) 125 MCG PO (08:11)
[2021-02-13] MEDS: Cyanocobalamin 500 MCG Tablet PO (08:11)
[2021-02-13] MEDS: Clopidogrel Bisulfate 75 MG Tablet PO (08:11)
[2021-02-13] MEDS: Multivitamins,Therapeutic Tablet 1 TABLET PO (08:12)
[2021-02-13] MEDS: Arthritis Pain Compound 60 CLICK TUBE TOPICAL ×2 (08:13→19:42)
[2021-02-13] MEDS: Tamsulosin HCl 0.4 MG Capsule PO (08:13)
[2021-02-13] MEDS: Ipratropium Bromide 0.06% NASAL SPRAY 2 SPRAY NASAL ×2 (08:13→19:42)
[2021-02-13] MEDS: Sertraline 100 MG Tablet PO (08:14)
[2021-02-13] MEDS: Senna/Docusate Sodium 1 Tablet 2 TABLET PO ×2 (08:15→21:13)
[2021-02-13 13:19] VITALS: BMI 28.7
[2021-02-13 18:57] VITALS: BP 139/78; PULSE 76; RESP 16; TEMP 36.2; O2SAT 98
[2021-02-13] MEDS: Gabapentin 600 MG Tablet PO (19:43)
[2021-02-13] MEDS: Latanoprost 0.005% 1 Bottle 1 DRP EACH EYE (21:13)
[2021-02-13] MEDS: tiZANidine HCl 2 MG Tablet 4 MG PO (21:13)
[2021-02-13] MEDS: Pramipexole Di-HCl 0.125 MG Tablet PO (21:14)
[2021-02-13] MEDS: Atorvastatin Calcium 80 MG Tablet PO (21:14)
[2021-02-14] MEDS: Enoxaparin 40 MG/0.4 ML Syringe SC (04:45)
[2021-02-14] MEDS: Pantoprazole Sodium 40 MG Tablet PO ×2 (04:45→17:03)
[2021-02-14] MEDS: Acetaminophen 500 MG Tablet 1000 MG PO ×3 (04:45→21:34)
[2021-02-14] MEDS: Dronabinol 2.5 MG Capsule PO ×2 (07:21→17:03)
[2021-02-14 07:57] VITALS: BP 101/74; PULSE 74; RESP 16; TEMP 36.6; O2SAT 98
[2021-02-14] MEDS: Clopidogrel Bisulfate 75 MG Tablet PO (08:23)
[2021-02-14] MEDS: Cyanocobalamin 500 MCG Tablet PO (08:23)
[2021-02-14] MEDS: metFORMIN (XR) 500 MG Tablet PO (08:23)
[2021-02-14] MEDS: Folic Acid 1 MG Tablet PO ×2 (08:23→17:03)
[2021-02-14] MEDS: Ipratropium Bromide 0.06% NASAL SPRAY 2 SPRAY NASAL ×2 (08:23→21:33)
[2021-02-14] MEDS: Sertraline 100 MG Tablet PO (08:23)
[2021-02-14] MEDS: Cholecalciferol (VIT D3) 25 MCG TABLET (1,000 UNITS) 125 MCG PO (08:23)
[2021-02-14] MEDS: Tamsulosin HCl 0.4 MG Capsule PO (08:23)
[2021-02-14] MEDS: Gabapentin 300 MG Capsule PO (08:24)
[2021-02-14] MEDS: Multivitamins,Therapeutic Tablet 1 TABLET PO (08:24)
[2021-02-14] MEDS: tiZANidine HCl 2 MG Tablet PO (08:33)
[2021-02-14] MEDS: Arthritis Pain Compound 60 CLICK TUBE TOPICAL ×2 (08:38→21:33)
--- NOTE | 2021-02-14 09:05 | PCM.PN.BLA ---
Progress Note Afebrile VSS-blood pressure is well controlled. Heart rate is within normal limits. Maintaining appropriate oxygen saturation on RA Oral intake is good Discussed with nursing - He has many somatic complaints. Reviewed the PT/OT/ST notes Medication list reviewed. He is c/o R hip pain and pain radiating down the R leg today. He is also c/o persistent R elbow pain. He completed a 7 day course if Duricef. He has been afebrile. He is limping a little today. Did not sleep well last night due to pain in the RLE. Darian has R calf pain but there is no swelling and he has a Negative Florencio's sign. I believe the pain is due to radicular pain. He denies CP, SOB, N/V/abd pain, lightheadedness, cephalgia, dysuria. Physical Exam Const alert, oriented x3 and no apparent distress Constitutional Narrative: Lying in bed and appears comfortable. General Appearance: cooperative Resp clear to auscultation bilaterally Effort and Inspection: able to speak in complete sentences Cardio regular rate, regular rhythm, no murmurs and no gallops Cardio Narrative: occasional early beats Extremity no pedal edema Extremity Narrative: The R elbow and the area around the previous wound are desquamating. There is still a small olecranon effusion and it is still mildly warm to touch. The previous wound is also a little red although it has completely healed. Assessment & Plan Assessment/Plan (1) Debility: (2) Left pontine CVA: (3) Cellulitis: (4) Olecranon bursitis of left elbow: (5) Chronic back pain: (6) Radicular pain of right lower extremity: PLAN: 1. RX 7 days of Dicloxacillin....if the redness persists will try to get a small amount of fluid from the olecranon bursa....there is only a small amount there. 2. Increase the Gabapentin to 400 mg BID and 800 mg at 1999. 3. He needs to get an MRI as an OP to accurately diagnose what is happening to lead to the radicular pain and what can be done about it. 4. He may benefit from a transition to Cymbalta from Sertraline to help with control of chronic pain. He may also benefit from and epidural. He has a pain management doc he sees, Dr. Dacosta. Darian would like to be discharged on Sunday...will discuss at the TEAM meeting today. Visit Charges Inpatient E&M: 04050 Subs Hosp L2
--- NOTE | 2021-02-14 13:38 | CASEMGMT ---
Social Work Team meeting held. Patient present as well as patient ex-. Patient request to discharge to home on 02/16/2021, team is agreeable to this discharge date. Patient plans to discharge to home with ex- to assist/stay with patient. Patient denies any DME needs. 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 Patient is agreeable to recommendation and request for outpatient therapy to be set up through [facility]. Patient ex- to provide transportation to home for patient. Proposed discharge date: 02/16/2021 Disposition: Home with family and outpatient therapy services. Lesli LEWIS, BYRONS
[2021-02-14] MEDS: Ketorolac 10 MG Tablet PO (13:40)
[2021-02-14] MEDS: Gabapentin 400 MG Capsule PO (14:51)
[2021-02-14 15:29] VITALS: BMI 28.7
[2021-02-14 16:27] LABS: Bacteria 0 SEEN /hpf (None Seen); Red Blood Cells-Urine 0 SEEN /hpf (0-5); Squamous Epithelial Cells - UA 0 SEEN /hpf (0-5)
[2021-02-14 17:01] LABS: Color, Urine Yellow (Yellow); Glucose, Dipstick Normal (Normal); Ketone-Dipstick Negative (Negative); Leukocyte Esterase-Dipstick 25 /ul (Negative); Nitrite-Dipstick Negative (Negative); Occult Blood-Urine Negative /ul (Negative); Protein-Dipstick 15 mg/dl (Negative); Urine Bilirubin Dipstick Negative (Negative); Urine Clarity Clear (Clear); Urine Urobilinogen Normal (Normal)
[2021-02-14 17:23] LABS: Mucous, Urine 2+ /hpf (<or=2+); White Blood Cells 0-5 SEEN /hpf (0-5)
[2021-02-14 18:56] VITALS: BP 106/74; PULSE 72; RESP 16; TEMP 36.6; O2SAT 97
[2021-02-14] MEDS: Gabapentin 800 MG Tablet PO (21:19)
[2021-02-14] MEDS: Pramipexole Di-HCl 0.125 MG Tablet PO (21:34)
[2021-02-14] MEDS: Atorvastatin Calcium 80 MG Tablet PO (21:34)
[2021-02-14] MEDS: Latanoprost 0.005% 1 Bottle 1 DRP EACH EYE (21:35)
[2021-02-14 21:40] VITALS: PULSE 72; RESP 16; O2SAT 97; BMI 28.7
[2021-02-14] MEDS: tiZANidine HCl 2 MG Tablet 4 MG PO (21:44)
[2021-02-15] MEDS: Dronabinol 2.5 MG Capsule PO ×2 (06:26→17:47)
[2021-02-15] MEDS: Pantoprazole Sodium 40 MG Tablet PO ×2 (06:26→17:47)
[2021-02-15] MEDS: Acetaminophen 500 MG Tablet 1000 MG PO ×3 (06:26→19:50)
--- NOTE | 2021-02-15 08:17 | CASEMGMT ---
Social Work Telephone call to [facility], Scheduling. PT set up for 02/23/2021 @ 9:10am. OT set up for 03/01/2021 @ 2:10pm. CAPABILITY LEAD set up for 03/02/2021 @ 10:15am. Order faxed. Met with patient in room. Provided appointment reminder for therapy appointments. Patient with diagnosis of stroke. This transition social worker broach topic of stroke support group and provided information if patient is interested. Patient open to this transition social worker providing information on stroke support group. Proposed discharge date: 02/16/2021 Disposition: Home with ex- to assist and outpatient therapy. Lesli LEWIS, BYRONS
[2021-02-15] MEDS: Ipratropium Bromide 0.06% NASAL SPRAY 2 SPRAY NASAL ×2 (08:22→19:51)
[2021-02-15] MEDS: Folic Acid 1 MG Tablet PO ×2 (08:23→17:47)
[2021-02-15] MEDS: Cyanocobalamin 500 MCG Tablet PO (08:23)
[2021-02-15] MEDS: Clopidogrel Bisulfate 75 MG Tablet PO (08:23)
[2021-02-15] MEDS: Tamsulosin HCl 0.4 MG Capsule PO (08:23)
[2021-02-15] MEDS: metFORMIN (XR) 500 MG Tablet PO (08:23)
[2021-02-15] MEDS: Gabapentin 400 MG Capsule PO ×2 (08:23→13:38)
[2021-02-15] MEDS: Sertraline 100 MG Tablet PO (08:23)
[2021-02-15] MEDS: Arthritis Pain Compound 60 CLICK TUBE TOPICAL ×2 (08:23→19:48)
[2021-02-15] MEDS: Cholecalciferol (VIT D3) 25 MCG TABLET (1,000 UNITS) 125 MCG PO (08:23)
[2021-02-15] MEDS: Multivitamins,Therapeutic Tablet 1 TABLET PO (08:23)
[2021-02-15 08:49] VITALS: BP 121/76; PULSE 64; RESP 16; TEMP 36.3; O2SAT 93
--- NOTE | 2021-02-15 11:33 | PN_ITS ---
Progress Note Afebrile VSS-blood pressures well controlled Maintaining appropriate oxygen saturation on RA Oral intake is good Discussed with nursing - no problems that need addressed Reviewed the PT/OT/ST notes Medication list reviewed. Gabapentin doses were increased yesterday and he was started on Dicloxacillin for suspected staph infection of the L olecranon bursa. He tells me that he feels much better today. He is ambulating without a limp. He has a normal tandem gait. He is MELISA and ambulating in the loja without an AD and no LOB. He slept well last night. The L elbow is slurry tank tender but less so and I can palpate it now without him withdrawing. The UA was unremarkable and the culture has no growth to date. There is still mild increased in the warmth of the left elbow. The redness is more pink today. The site of the previous opening in the skin distal to the L elbow is pink as well today with no increased warmth to touch. Impression: 1. Infected L olecranon bursitis - with desquamation. Suspected Staph infection. Continue the Dicloxacillin at DC 2. HTN - controlled 3. chronic back pain with radiation to the RLE........responding well to increase in the Gabapentin. He would like to follow up with pain management in [place] at discharge. Will try and get him an appt with Dr. Scanlon. Plan DC home tomorrow. His ex- will be staying with him. OP therapy post DC. Visit Charges Inpatient E&M: 19228 Subs Hosp L1
[2021-02-15 15:07] VITALS: BMI 28.7
[2021-02-15] MEDS: Latanoprost 0.005% 1 Bottle 1 DRP EACH EYE (19:48)
[2021-02-15] MEDS: Pramipexole Di-HCl 0.125 MG Tablet PO (19:49)
[2021-02-15] MEDS: Gabapentin 800 MG Tablet PO (19:50)
[2021-02-15] MEDS: tiZANidine HCl 2 MG Tablet 4 MG PO (19:50)
[2021-02-15] MEDS: Atorvastatin Calcium 80 MG Tablet PO (19:50)
[2021-02-15 20:00] VITALS: BP 151/75; PULSE 77; RESP 17; TEMP 36.3; O2SAT 96
[2021-02-16 01:19] VITALS: BMI 28.7
[2021-02-16] MEDS: Pantoprazole Sodium 40 MG Tablet PO (05:24)
[2021-02-16] MEDS: Acetaminophen 500 MG Tablet 1000 MG PO ×2 (05:24→13:28)
[2021-02-16] MEDS: Dronabinol 2.5 MG Capsule PO (05:29)
[2021-02-16] MEDS: metFORMIN (XR) 500 MG Tablet PO (08:32)
[2021-02-16] MEDS: Folic Acid 1 MG Tablet PO (08:32)
[2021-02-16] MEDS: Multivitamins,Therapeutic Tablet 1 TABLET PO (08:32)
[2021-02-16] MEDS: Cyanocobalamin 500 MCG Tablet PO (08:33)
[2021-02-16] MEDS: Tamsulosin HCl 0.4 MG Capsule PO (08:33)
[2021-02-16] MEDS: Arthritis Pain Compound 60 CLICK TUBE TOPICAL (08:33)
[2021-02-16] MEDS: Cholecalciferol (VIT D3) 25 MCG TABLET (1,000 UNITS) 125 MCG PO (08:33)
[2021-02-16] MEDS: Ipratropium Bromide 0.06% NASAL SPRAY 2 SPRAY NASAL (08:33)
[2021-02-16] MEDS: Clopidogrel Bisulfate 75 MG Tablet PO (08:33)
[2021-02-16] MEDS: Sertraline 100 MG Tablet PO (08:34)
[2021-02-16 08:40] VITALS: BP 125/72; PULSE 61; RESP 18; TEMP 36.5; O2SAT 96
--- NOTE | 2021-02-16 09:47 | DCINST_ITS ---
Discharge Instructions Diet Discharge Diet: Low fat / Low cholesterol and Carb Control Diet Activity Discharge Activity: - (Do the exercises given to you by the therapists at least once a day.) May shower in (days): 1 Weight Bearing Status: Full weight bearing Lifting Restrictions: no more than 10 lbs Dressing / Incision Call your doctor if you observe: Fever of 101 or Higher, Inability to urinate, Shortness of breath, Fainting spells, Chest pain, Calf discomfort and Uncontrolled pain Follow Up Care Please Follow Up With: Dr Scanlon-Pain Management Test Results: Test results from this visit will be discussed in further detail at your follow-up appointment, if applicable. Pending Tests Upon Discharge: none Discharge Plan Admission Admit Date/Time: 01/26/21 18:27 Primary Reason for Your Visit: Debiity due to acute L pontine ischemic CVA Attending Provider: Suzette Lyles Primary Care Provider: Milena Stokes Instructions Patient Instructions: Anatomy of a Normal Spine, Communicating About Pain, Common Spine and Disk Problems, Discharge Instructions for Stroke Additional Instructions / Restrictions: 1. I would avoid taking Viagra until you discuss this with the neurologist. Viagra con lead to increased BP and uncontrolled BP is one of the risk factors for stroke. you BP has been well controlled but, I would wait at least 6 weeks from the initial date of the stroke. 2. You need an MRI of your back. I suspect you have significant nerve compression and this is causing the pain in the R leg. Gabapentin has helped this but, we keep having to increase the dose to keep the pain controlled. We are referring you to a pain management doctor at [facility]. His name is Dr. Emily Scanlon and his office is in the Medical office building in front of the hospital on the second floor. 3. If you need to have surgery there is a orthopedic doctor, his name is Dr. Dieudonne Mitchell that does spine surgery at [facility]. 4. You have done very well in therapy Darian and we are very pleased with your progress. You will have outpatient therapy following discharge from the rehab unit. 5. You will need to follow up with a neurologist for the stroke. 6. I have been giving you Dronabinol (synthetic marijuana) in the hospital. I can not prescribe this at discharge and most insurance companies do not cover this medication. If you need marijuana for pain control I would lean toward using the Gummies because smoking is a risk factor for strokes and heart attacks. 7. I changed the nose spray to Atrovent nasal spray while you have been in the hospital. If you feel the 2 sprays you were taking prior to the stroke work better please feel free to resume those nasal sprays and discard the prescription I gave you. 8. It was great to get to know you. I am glad we could help you. If you have any questions after you leave rehab my office # is [phone] and my cell number is [phone]. Stay well friend and REMEMBER TO WEAR A MASK IN PUBLIC. MEET HAJI. Discharge Orders/Prescriptions Prescriptions: New sertraline 100 mg Tablet 100 mg PO DAILY Qty: 30 RF: 0 pantoprazole 40 mg Tablet,Delayed Release (Dr/Ec) 40 mg PO 0600,1800 Qty: 60 RF: 0 Arthritis Pain Compound 2 click topical BID Qty: 0 RF: 0 gabapentin 400 mg Capsule See Rx Instructions .ROUTE .COMPLEX 30 Days Qty: 120 RF: 0 acetaminophen 500 mg Tablet 1,000 mg PO Q8 Qty: 0 RF: 0 dicloxacillin 250 mg Capsule 250 mg PO Q6 Qty: 24 RF: 0 ipratropium bromide 42 mcg (0.06 %) [place],Non-Aerosol 2 spray NASAL BID Qty: 1 RF: 0 Continued multivitamin Tablet 1 tab PO DAILY RF: 0 latanoprost 0.005 % Drops 1 drp EACH EYE QHS RF: 0 cyanocobalamin (vitamin B-12) 500 mcg Tablet 500 mcg PO DAILY RF: 0 pramipexole 0.125 mg Tablet 0.125 mg PO QHS RF: 0 metformin 500 mg Tablet Extended Release 24 Hr 500 mg PO DAILY RF: 0 atorvastatin [Lipitor] 80 mg Tablet 80 mg PO QHS Qty: 30 RF: 0 clopidogrel [Plavix] 75 mg Tablet 75 mg PO DAILY Qty: 30 RF: 0 tamsulosin [Flomax] 0.4 mg Capsule 0.4 mg PO DAILY Qty: 30 RF: 0 cholecalciferol (vitamin D3) [Vitamin D3] 125 mcg (5,000 unit) Tablet 125 mcg PO DAILY Qty: 30 RF: 0 Changed tizanidine 2 mg Tablet See Rx Instructions .ROUTE .COMPLEX PRN (Reason: Muscle Spasm) 30 Days Qty: 120 RF: 0 Discontinued pantoprazole 40 mg Tablet,Delayed Release (Dr/Ec) 40 mg PO DAILY RF: 0 aspirin 81 mg Tablet 81 mg PO DAILY RF: 0 mupirocin [Bactroban] 2 % Ointment 1 applic TOPICAL BID RF: 0 azelastine 137 mcg (0.1 %) Aerosol,[place] 2 spray INTRANASAL BID RF: 0 fluticasone propionate [Flonase] 50 mcg/actuation [place],Suspension 2 spray INTRANASAL DAILY RF: 0 sertraline [Zoloft] 50 mg Tablet 50 mg PO DAILY RF: 0 Referrals / Follow Up: Milena Stokes MD [Primary Care Provider] - Disposition Disposition (needs filled in before D/C Order can be placed): Home, Self Care
[2021-02-16] MEDS: Gabapentin 400 MG Capsule PO ×2 (10:09→13:28)
[2021-02-16 10:28] VITALS: BP 125/72; PULSE 61; RESP 18; TEMP 36.5; O2SAT 96
--- NOTE | 2021-02-16 10:30 | PCM.DC.SUM ---
Providers Date of Admission: 01/26/21 Primary Care Physician: Dr. Milena Stokes MD Reason For Visit: STROKE Diagnosis Discharge Diagnosis (1) Debility: Status: Acute Code(s): R53.81 - Other malaise (2) Left pontine CVA: Status: Acute Code(s): I63.9 - Cerebral infarction, unspecified (3) Pseudobulbar affect: Status: Acute Code(s): F48.2 - Pseudobulbar affect (4) Right arm weakness: Status: Acute Code(s): R29.898 - Other symptoms and signs involving the musculoskeletal system (5) Dysarthria: Status: Acute Code(s): R47.1 - Dysarthria and anarthria (6) Cellulitis: Status: Acute Code(s): L03.90 - Cellulitis, unspecified (7) Olecranon bursitis of left elbow: Status: Acute Code(s): M70.22 - Olecranon bursitis, left elbow (8) Radicular pain of right lower extremity: Status: Acute Code(s): M54.10 - Radiculopathy, site unspecified (9) Chronic back pain: Status: Chronic Code(s): M54.9 - Dorsalgia, unspecified; G89.29 - Other chronic pain (10) Mixed hyperlipidemia: Status: Acute Code(s): E78.2 - Mixed hyperlipidemia (11) Osteoarthritis: Status: Acute Code(s): M19.90 - Unspecified osteoarthritis, unspecified site (12) Glaucoma: Status: Acute Code(s): H40.9 - Unspecified glaucoma (13) Allergic rhinitis: Status: Acute Code(s): J30.9 - Allergic rhinitis, unspecified (14) GERD (gastroesophageal reflux disease): Status: Acute Code(s): K21.9 - Gastro-esophageal reflux disease without esophagitis (15) Barretts esophagus: Status: Acute Code(s): K22.70 - Perez's esophagus without dysplasia (16) BPH (benign prostatic hyperplasia): Status: Acute Code(s): N40.0 - Benign prostatic hyperplasia without lower urinary tract symptoms (17) Diabetes type 2, controlled: Status: Acute Code(s): E11.9 - Type 2 diabetes mellitus without complications (18) LVH (left ventricular hypertrophy): Status: Acute Code(s): I51.7 - Cardiomegaly (19) Grade I diastolic dysfunction: Status: Acute Code(s): I51.9 - Heart disease, unspecified Plan: DC home. OP therapy. Follow up with Neurology, Dr. Stokes, Dr. Scanlon, gastroenterology. Medications at Discharge Home Medications cyanocobalamin (vitamin B-12) 500 mcg PO DAILY 01/26/21 latanoprost 1 drp EACH EYE QHS 01/26/21 metformin 500 mg PO DAILY 01/26/21 multivitamin 1 tab PO DAILY 01/26/21 pramipexole 0.125 mg PO QHS 01/26/21 Arthritis Pain Compound 2 click TOPICAL BID #0 02/16/21 acetaminophen 1,000 mg PO Q8 #0 tab 02/16/21 atorvastatin [Lipitor] 80 mg PO QHS #30 tab 02/16/21 cholecalciferol (vitamin D3) [Vitamin D3] 125 mcg PO DAILY #30 tab 02/16/21 clopidogrel [Plavix] 75 mg PO DAILY #30 tab 02/16/21 dicloxacillin 250 mg PO Q6 #24 cap 02/16/21 gabapentin See Rx Instructions .ROUTE .COMPLEX 30 Days #120 cap 02/16/21 ipratropium bromide 2 spray NASAL BID #1 bottle 02/16/21 pantoprazole 40 mg PO 0600,1800 #60 tab 02/16/21 sertraline 100 mg PO DAILY #30 tab 02/16/21 tamsulosin [Flomax] 0.4 mg PO DAILY #30 cap 02/16/21 tizanidine See Rx Instructions .ROUTE .COMPLEX PRN 30 Days #120 tab 02/16/21 Hospital Course Operations None Procedures None and - (Modified barium swallow) Summary of Care Provided Minutes Spent on Discharge: 48 Hospital Course: PRABHU FAY, is a 65 YO M with a PMH of chronic R hip/leg and back pain, presbycusis ( has BL hearing aids but does not use), tobacco dependence in remission, ED on Viagra, GERD, Perez's esophagus, diabetes mellitus type 2, hyperlipidemia, obstructive sleep apnea, BPH and restless leg syndrome who presented to [facility] ED on 01/21/21 with R side weakness, dysarthria and aphasia. A non-contrast CT head was unremarkable and he was transferred to [facility]. The NIHSS was 4. CTA of the head and neck showed no large vessel occlusion but did show mild stenosis of the bilateral vertebral arteries. MRI of the brain showed acute left pontine infarct. He was given TPA at [facility]. A cerebral angiogram was completed on 01/24/2021 and it confirmed mild stenosis at the ostium of both vertebral arteries and carotid bifurcations. No intervention was done. Significant lab included a HGBA1C of 5.7% and an LDL of 116. While at [facility] he was diagnosed with Pseudobulbar affect and he was started on Sertraline 50 mg. This was increased to 100 mg daily while in rehab and his moods are stable and he is not anxious or emotionally labile. He was seen by PT/OT and ST at [facility] and acute rehab was recommended. He was transferred to the in acute rehab unit at [facility] for 3 hours of therapy daily to restore function at or near his level of function/independence prior to the stroke. Shortly after admission Darian developed Left elbow pain, redness and increased warmth to touch. There was a Olecranon effusion present. The uric acid was WNL but it came on suddenly, he could not tolerate even light touch and we elected to treat for gout with Prednisone. The pain improved and the redness, swelling and erythema regressed but, did not resolve completely. The effusion was much smaller. There was a small eschar distal to the left elbow and it developed erythema around it also. He was started on Duricef and competed 7 days of treatment. The redness around the eschar resolved and the eschar fell off. He still had a very small Olecranon effusion but the redness resolved and there was minimal increased warmth to touch. A day or 2 later the redness and pain started to increase again and he c/o arthralgias, myalgias, fatigue and generally did not feel well. He was started on Dicloxacillin. There was not enough fluid in the bursa to tap. He started to feel better and the pain improved and so did the redness. He will complete 7 days of Dicloxacillin. Darian c/o severe back pain with radiation down the R leg. He additionally c/o jerking of the R leg. He was started on Gabapentin in addition to Mirapex and the back and radicular pain improved. We tried to DC the Mirapex and the jerking recurred. An EEG was obtained to rule out focal motor seizures given the recent CVA and the EEG was negative for seizure activity. We restarted Mirapex and increased the Gabapentin and the jerking resolved again. I would try weaning him off the Mirapex because some of the increase in the RLS sx could be from augmentation. Darian did very well in therapy. Prior to discharge he had ambulated 5000 feet without an assistive device on various surfaces and modified independent. He was able to do 80 steps at standby assist with 1-2 handrails in a reciprocal fashion. He completed the tug test in only 8.8 seconds and he did 12 sit to stands in 30 seconds. He was independent with all ADLs. The dysarthria was much improved and I had no difficulty understanding his speech. Darian was discharged from rehab on 02/16/21 and will be going home. His ex- will be staying with him initially. He will be getting outpatient therapy at [facility] and appointments were set up for him by the social media marketing analyst. He was instructed not to drive until released by the neurologist. His former will be transporting him to appts. He requested a referral to a local pain management physician and I told him Dr. Scanlon and Dr. Fonseca are both local. An appt was made for him with Dr. Scanlon after DC. Physical Exam Const alert, oriented x3 and no apparent distress Constitutional Narrative: ambulating in the halls without an AD independently with good viky and no LOB. General Appearance: cooperative, comfortable, well kempt and well developed HEENT normocephalic, head/scalp atraumatic, moist oral mucous membranes and oropharynx normal Eyes PERRL and EOMs intact bilaterally Eyes Narrative: No visual field cuts Neck no lymphadenopathy, supple and no carotid bruits General: trachea midline Chest Chest: symmetrical chest wall rise Resp normal respiratory effort and clear to auscultation bilaterally Resp Narrative: not tachypneic with exertion, able to talk in complete sentences Effort and Inspection: able to speak in complete sentences Cardio regular rate, regular rhythm, S1 normal heart sound, S2 normal heart sound, no murmurs, no rub, no gallops and peripheral pulses 2+ throughout Cardio Narrative: rare premature beat GI normal to inspection, nondistended, normoactive bowel sounds, soft to palpation, non-tender and non-distended GI Narrative: no guarding with palpation Extremity normal capillary refill, no clubbing, cyanosis or edema, no calf tenderness and no pedal edema Extremity Narrative: Minimal erythema of the Left elbow and only a trace of olecranon effusion. No wounds or openings in the skin. Not warm to touch today. Skin General Skin Exam: no breakdown Rashes: no rashes Neuro CN's II-XII intact bilaterally Neuro Narrative: He is very mindful when he is eating to follow the instructions given to him by the ST. He is doing well with PT and he is ambulating on various surfaces with no loss of balance. He is only dysarthric when he does not slow down and when he does I do not notice any dysarthria. the arm weakness has resolved but,fine motor coordination is still not where it was prior to the stroke. Psych cooperative, affect normal, denies homicidal ideation and denies suicidal ideation Psych Narrative: He is calm and appropriate. He is sleeping well. He is no longer emotionally labile and he is a pleasure to talk with.......no longer argumentative. Weight / BMI Weight Weight: 184 lb 1.376 oz Body Mass Index (BMI) 28.7 ABG / Lab / Microbiology Data Result Diagrams: 02/01/21 11:20 01/27/21 06:54 Microbiology: Microbiology 02/14/21 16:15 Urine, Clean Catch Urine Culture - Preliminary Culture exhibits no growth. 02/03/21 08:00 Nasal Secretion SARS-CoV-2 Antigen (Rapid) - Final D/C Instructions Discharge Diet: Low fat / Low cholesterol and Carb Control Diet May shower in (days): 1 Weight Bearing Status: Full weight bearing Call your doctor if you observe: Fever of 101 or Higher, Inability to urinate, Shortness of breath, Fainting spells, Chest pain, Calf discomfort and Uncontrolled pain Pending Tests Upon Discharge: none Please Follow Up With: Dr Scanlon-Pain Management Meaningful Use Info Meaningful Use Diagnoses (Choose all that apply): Ischemic CVA CVA Therapy Assessed for PT,OT and/or ST?: Yes Ischemic Stroke Antithrombotic order at d/c?: Yes Dx of Atrial fib/flutter?: No Anticoagulant at discharge?: No Reason anticoagulant not ordered: Treatment not Indicated Statins at discharge?: Yes Primary Dx Acute Ischemic CVA?: Yes IV tPA ordered during stay?: No Reason IV t-PA not ordered: Treatment not Indicated Discharge Plan Admission Admit Date/Time: 01/26/21 18:27 Primary Reason for Your Visit: Debiity due to acute L pontine ischemic CVA Attending Provider: Suzette Lyles Primary Care Provider: Milena Stokes Instructions Patient Instructions: Anatomy of a Normal Spine, Communicating About Pain, Common Spine and Disk Problems, Discharge Instructions for Stroke Additional Instructions / Restrictions: 1. I would avoid taking Viagra until you discuss this with the neurologist. Viagra con lead to increased BP and uncontrolled BP is one of the risk factors for stroke. you BP has been well controlled but, I would wait at least 6 weeks from the initial date of the stroke. 2. You need an MRI of your back. I suspect you have significant nerve compression and this is causing the pain in the R leg. Gabapentin has helped this but, we keep having to increase the dose to keep the pain controlled. We are referring you to a pain management doctor at [facility]. His name is Dr. Emily Scanlon and his office is in the Medical office building in front of the hospital on the second floor. 3. If you need to have surgery there is a orthopedic doctor, his name is Dr. Dieudonne Mitchell that does spine surgery at [facility]. 4. You have done very well in therapy Darian and we are very pleased with your progress. You will have outpatient therapy following discharge from the rehab unit. 5. You will need to follow up with a neurologist for the stroke. 6. I have been giving you Dronabinol (synthetic marijuana) in the hospital. I can not prescribe this at discharge and most insurance companies do not cover this medication. If you need marijuana for pain control I would lean toward using the Gummies because smoking is a risk factor for strokes and heart attacks. 7. I changed the nose spray to Atrovent nasal spray while you have been in the hospital. If you feel the 2 sprays you were taking prior to the stroke work better please feel free to resume those nasal sprays and discard the prescription I gave you. 8. It was great to get to know you. I am glad we could help you. If you have any questions after you leave rehab my office # is [phone] and my cell number is [phone]. Stay well friend and REMEMBER TO WEAR A MASK IN PUBLIC. GILBERTAIYANA JERRIJack. Discharge Orders/Prescriptions Prescriptions: New sertraline 100 mg Tablet 100 mg PO DAILY Qty: 30 RF: 0 pantoprazole 40 mg Tablet,Delayed Release (Dr/Ec) 40 mg PO 0600,1800 Qty: 60 RF: 0 Arthritis Pain Compound 2 click topical BID Qty: 0 RF: 0 gabapentin 400 mg Capsule See Rx Instructions .ROUTE .COMPLEX 30 Days Qty: 120 RF: 0 acetaminophen 500 mg Tablet 1,000 mg PO Q8 Qty: 0 RF: 0 dicloxacillin 250 mg Capsule 250 mg PO Q6 Qty: 24 RF: 0 ipratropium bromide 42 mcg (0.06 %) [place],Non-Aerosol 2 spray NASAL BID Qty: 1 RF: 0 Continued multivitamin Tablet 1 tab PO DAILY RF: 0 latanoprost 0.005 % Drops 1 drp EACH EYE QHS RF: 0 cyanocobalamin (vitamin B-12) 500 mcg Tablet 500 mcg PO DAILY RF: 0 pramipexole 0.125 mg Tablet 0.125 mg PO QHS RF: 0 metformin 500 mg Tablet Extended Release 24 Hr 500 mg PO DAILY RF: 0 atorvastatin [Lipitor] 80 mg Tablet 80 mg PO QHS Qty: 30 RF: 0 clopidogrel [Plavix] 75 mg Tablet 75 mg PO DAILY Qty: 30 RF: 0 tamsulosin [Flomax] 0.4 mg Capsule 0.4 mg PO DAILY Qty: 30 RF: 0 cholecalciferol (vitamin D3) [Vitamin D3] 125 mcg (5,000 unit) Tablet 125 mcg PO DAILY Qty: 30 RF: 0 Changed tizanidine 2 mg Tablet See Rx Instructions .ROUTE .COMPLEX PRN (Reason: Muscle Spasm) 30 Days Qty: 120 RF: 0 Discontinued pantoprazole 40 mg Tablet,Delayed Release (Dr/Ec) 40 mg PO DAILY RF: 0 aspirin 81 mg Tablet 81 mg PO DAILY RF: 0 mupirocin [Bactroban] 2 % Ointment 1 applic TOPICAL BID RF: 0 azelastine 137 mcg (0.1 %) Aerosol,[place] 2 spray INTRANASAL BID RF: 0 fluticasone propionate [Flonase] 50 mcg/actuation [place],Suspension 2 spray INTRANASAL DAILY RF: 0 sertraline [Zoloft] 50 mg Tablet 50 mg PO DAILY RF: 0 Referrals / Follow Up: Milena Stokes MD [Primary Care Provider] - Disposition Disposition (needs filled in before D/C Order can be placed): Home, Self Care Charges/Coding Visit Charges Inpatient E&M: 87661 Disch Hosp
[2021-02-16 10:51] VITALS: BMI 28.7
--- NOTE | 2021-02-16 13:38 | NURSING ---
pt discharged home via car transport with ex-. discharge instructions given and pt denies questions or concerns.
== END 2021-02-16 13:41 | disposition home or self-care (01) | DRG 57 ==
PROVIDERS: Admitting Provider Internal Medicine; PCP Internal Medicine; Visit Provider Internal Medicine
DX: I69.351 Hemiplegia and hemiparesis following cerebral infarction affecting right dominant side (principal); I69.322 Dysarthria following cerebral infarction; I69.320 Aphasia following cerebral infarction; K21.9 Gastro-esophageal reflux disease without esophagitis; E11.9 Type 2 diabetes mellitus without complications; G47.33 Obstructive sleep apnea (adult) (pediatric); N40.0 Benign prostatic hyperplasia without lower urinary tract symptoms; G25.81 Restless legs syndrome; E78.2 Mixed hyperlipidemia; K22.70 Barrett's esophagus without dysplasia; F48.2 Pseudobulbar affect; G89.29 Other chronic pain; M54.10 Radiculopathy, site unspecified; F41.9 Anxiety disorder, unspecified; I10 Essential (primary) hypertension; M47.9 Spondylosis, unspecified; Z79.899 Other long term (current) drug therapy; Z79.01 Long term (current) use of anticoagulants; Z79.02 Long term (current) use of antithrombotics/antiplatelets; Z87.891 Personal history of nicotine dependence; M25.421 Effusion, right elbow
CPT/HCPCS: 36415; 72114; 74230; 80053; 81001; 83735; 84100; 84550; 85025; 87086; 87426; 92507; 92523; 92526; 92610; 92611; 94762; 95819; 97032; 97110; 97112; 97116; 97140; 97162; 97166; 97530; 97535; 97802; 97803; 99251; G0463

== ENCOUNTER → 2021-03-15 15:08 | Outpatient (CLI) | payer MEDICARE, OTHER, SELFPAY ==
[2021-03-15 17:41] LABS: Amphetamine Urine VISTA POSITIVE (<1000 ng/mL); Barbiturate Urine VISTA NEGATIVE (< 200 ng/mL); Benzodiazepine Urine VISTA NEGATIVE (< 200 ng/mL); Cocaine Urine VISTA NEGATIVE (< 300 ng/mL); Ecstacy Urine VISTA POSITIVE (< 500 ng/mL); Methadone Urine VISTA NEGATIVE (< 300 ng/mL); PCP Urine VISTA NEGATIVE (< 25 ng/mL); THC Urine VISTA POSITIVE (< 50 ng/mL); Vista UDS pH Range 5
== END ==
PROVIDERS: PCP Internal Medicine; Visit Provider Anesthesiology Pain Medicine
DX: F11.20 Opioid dependence, uncomplicated (principal)
CPT/HCPCS: 80307

== ENCOUNTER → 2021-03-29 13:26 | Outpatient (CLI) | payer MEDICARE, OTHER, SELFPAY ==
--- NOTE | 2021-03-29 13:45 | MRI_ITS ---
STUDY: MRI LUMBAR SPINE WITHOUT CONTRAST REASON FOR EXAM: Male, 65 years old. Back and right leg pain TECHNIQUE: Standardized fat and water weighted pulse sequences were obtained in the sagittal and axial planes. COMPARISON: X-ray dated 01/28/2021 FINDINGS: Normal lumbar lordosis. There is no substantial scoliosis. Normal conus medullaris that terminates at the L1. L1-2: There is minimal disc space narrowing and endplate spondylosis. There is no significant disc herniation, central canal or foraminal stenosis. Mild facet arthropathy. L2-3: There is minimal disc space narrowing and endplate spondylosis. There is no significant disc herniation, central canal or foraminal stenosis. Mild facet arthropathy. L3-4: Normal endplates. Normal disc height, hydration and morphology. Normal bilateral facet joints. Normal central canal and bilateral lateral recesses. Normal bilateral intervertebral neural foramina. L4-5: There is mild disc space narrowing and endplates spondylosis. Mild disc bulge and moderate facet arthropathy with joint widening. Mild central canal stenosis. Grade 1 anterolisthesis. Moderate right and moderate left foraminal stenosis. L5-S1: There is minimal disc space narrowing and endplate spondylosis. Mild disc bulge and severe facet arthropathy without significant central canal stenosis. Mild right and mild left foraminal stenosis. Normal visualized sacral ala. MRI/Spine Lumbar (Routine) IMPRESSION: L4/L5: Facet arthropathy with grade 1 anterolisthesis. Moderate right and moderate left foraminal stenosis. L5/S1: Severe facet arthropathy. Electronically Signed: Luis Miguel Glez MD at 13:27 EDT Tel , Service support ,
== END ==
PROVIDERS: PCP Internal Medicine; Referring Provider Anesthesiology Pain Medicine; Visit Provider Anesthesiology Pain Medicine
DX: M43.16 Spondylolisthesis, lumbar region (principal); M46.96 Unspecified inflammatory spondylopathy, lumbar region; M48.061 Spinal stenosis, lumbar region without neurogenic claudication
CPT/HCPCS: 72148

== ENCOUNTER → 2021-04-12 15:37 | Outpatient (CLI) | payer MEDICARE, OTHER, SELFPAY ==
[2021-04-12 16:40] LABS: Amphetamine Urine VISTA POSITIVE (<1000 ng/mL); Barbiturate Urine VISTA NEGATIVE (< 200 ng/mL); Benzodiazepine Urine VISTA NEGATIVE (< 200 ng/mL); Cocaine Urine VISTA NEGATIVE (< 300 ng/mL); Ecstacy Urine VISTA NEGATIVE (< 500 ng/mL); Methadone Urine VISTA NEGATIVE (< 300 ng/mL); PCP Urine VISTA NEGATIVE (< 25 ng/mL); THC Urine VISTA NEGATIVE (< 50 ng/mL); Vista UDS pH Range 6
== END ==
PROVIDERS: PCP Internal Medicine; Visit Provider Anesthesiology Pain Medicine
DX: F11.20 Opioid dependence, uncomplicated (principal)
CPT/HCPCS: 80307

== ENCOUNTER → 2022-07-08 | Outpatient (CLI) | payer MEDICARE, OTHER, SELFPAY ==
--- NOTE | 2022-07-08 13:24 | MRI_ITS ---
INDICATION: Back and left lower extremity pain. EXAMINATION: MRI - MR Spine Lumbar W/O Contrast TECHNIQUE: Multiplanar and multisequence MR images of the lumbar spine. IV Contrast Dosage and Agent: None. COMPARISON: 03/29/2021 MRI lumbar spine. FINDINGS: No fracture or acute osseous abnormality. Mild, 2 mm, grade 1 degenerative anterolisthesis of L4 on L5 similar to prior. Alignment otherwise anatomic. Conus terminates at the level of the mid L1 vertebral body with normal contour and signal. Normal arborization of the cauda equina. At L1-2, L2-3, and L3-4 moderate bilateral facet degeneration causes only mild narrowing with no evidence of nerve impingement, similar to prior. At L4-5, small diffuse disc bulge and moderate bilateral facet degeneration with grade 1 anterolisthesis and degenerative buckling of the ligamentum flavum causes only mild narrowing of the spinal canal. Disc and osteophyte extend into and moderately now both foramina, abutting but not compressing the exiting bilateral L4 nerve roots. This is similar to prior. There is pseudoarticulation between the spinous processes of L4 and L5. At L5-S1, moderate bilateral facet degeneration causes only mild narrowing of the spinal canal and foramina. No evidence of nerve root impingement. The paraspinal soft tissues are unremarkable. MRI/Spine Lumbar (Routine) IMPRESSION: Degenerative changes similar to prior. Most severe at L4-5 where there is marked bilateral facet degeneration and mild degenerative anterolisthesis but no lennox nerve root compression. 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 Electronically Signed: Yoel Ortiz MD at 22:32 EST Reading Location ID and State: [id number] [place] Tel , Service support ,
== END | disposition home or self-care (01) ==
LOC: MRI 07-11 09:27
PROVIDERS: PCP Internal Medicine; Referring Provider Orthopaedic Surgery; Visit Provider Orthopaedic Surgery
DX: M48.061 Spinal stenosis, lumbar region without neurogenic claudication (principal)
CPT/HCPCS: 72148

== ENCOUNTER → 2022-12-19 | Outpatient (CLI) | payer MEDICARE, OTHER, SELFPAY ==
[2022-12-19 17:29] LABS: Amphetamine Urine VISTA NEGATIVE (<1000 ng/mL); Barbiturate Urine VISTA NEGATIVE (< 200 ng/mL); Benzodiazepine Urine VISTA NEGATIVE (< 200 ng/mL); Cocaine Urine VISTA NEGATIVE (< 300 ng/mL); Ecstacy Urine VISTA NEGATIVE (< 500 ng/mL); Methadone Urine VISTA NEGATIVE (< 300 ng/mL); PCP Urine VISTA NEGATIVE (< 25 ng/mL); THC Urine VISTA POSITIVE (< 50 ng/mL); Vista UDS pH Range 4
== END | disposition home or self-care (01) ==
LOC: LAB 16:52
PROVIDERS: PCP Internal Medicine; Referring Provider Anesthesiology Pain Medicine; Visit Provider Anesthesiology Pain Medicine
DX: F11.20 Opioid dependence, uncomplicated (principal)
CPT/HCPCS: 80307

== ENCOUNTER → 2023-09-27 | Outpatient (CLI) | payer MEDICARE, OTHER, SELFPAY ==
[2023-09-27 17:05] LABS: Amphetamine Urine VISTA NEGATIVE (<1000 ng/mL); Barbiturate Urine VISTA NEGATIVE (< 200 ng/mL); Benzodiazepine Urine VISTA NEGATIVE (< 200 ng/mL); Cocaine Urine VISTA NEGATIVE (< 300 ng/mL); Ecstacy Urine VISTA NEGATIVE (< 500 ng/mL); Methadone Urine VISTA NEGATIVE (< 300 ng/mL); PCP Urine VISTA NEGATIVE (< 25 ng/mL); THC Urine VISTA POSITIVE (< 50 ng/mL); Vista UDS pH Range 5
== END | disposition home or self-care (01) ==
LOC: LAB 14:49
PROVIDERS: PCP Internal Medicine; Referring Provider Anesthesiology Pain Medicine; Visit Provider Anesthesiology Pain Medicine
DX: F11.20 Opioid dependence, uncomplicated (principal)
CPT/HCPCS: 80307

== ENCOUNTER → 2025-02-19 | Outpatient (CLI) | payer MEDICARE, SELFPAY ==
[2025-02-19 22:02] LABS: Barbiturate Urine NEGATIVE (< 200 ng/mL); Benzodiazepine Urine NEGATIVE (< 200 ng/mL); PCP Urine NEGATIVE (< 25 ng/mL); THC Urine PRESUMPTIVE POSITIVE (< 50 ng/mL)
== END | disposition home or self-care (01) ==
LOC: LAB 15:38
PROVIDERS: PCP Internal Medicine; Referring Provider Anesthesiology Pain Medicine; Visit Provider Anesthesiology Pain Medicine
DX: F11.20 Opioid dependence, uncomplicated (principal)
CPT/HCPCS: 80307